=== PATIENT | male | born 1945 | race Caucasian/White ===

== ENCOUNTER 2019-10-11 13:43 | Inpatient (IN) ==
[2019-10-11] MEDS ORDERED: SODIUM CHLORIDE 0.9% 250 ML IV PRN ×2 (14:26→16:44)
[2019-10-11] MEDS ORDERED: SODIUM CHLORIDE 0.9% 500 ML IV SCH (14:30)
[2019-10-11] MEDS ORDERED: PANTOprazole 80 MG in DEXTROSE 5% 100 ML IV ONE (15:00)
[2019-10-11] MEDS: PANTOprazole 40 MG in DEXTROSE 5% 100 ML IV SCH ×2 (15:01→19:33)
[2019-10-11 15:09] LABS: Alanine Aminotransferase 14 U/L (12-78); Albumin Level 3.3 gm/dl (3.4-5.0); Aspartate Aminotransferase 11 U/L (15-37); BUN Creatinine Ratio 44.6 (10-20); Blood Urea Nitrogen 97 mg/dl (7-18); Calcium 9.2 mg/dl (8.5-10.1); Carbon Dioxide 24 mmol/L (21-32); Chloride 109 mmol/L (98-107); Creatinine Clr Calc Pharmacy 32.7 ml/min; Est GFR (African American) 33.1; Est GFR (Non-African American) 28.5; Glucose 231 mg/dl (70-99); Potassium 5.3 mmol/L (3.5-5.1); Sodium 141 mmol/L (136-145)
[2019-10-11] MEDS ORDERED: NovoLIN-R INSULIN PER UNIT CHARGE IV STA (15:11)
--- NOTE | 2019-10-11 15:11 | XRay Report ---
XR chest 1V portable HISTORY: 74 years-old Male vomiting eval for free air acute vomiting with concern for pneumoperitone um COMPARISON: None TECHNIQUE: Portable AP view of the chest FINDINGS: Cardiomediastinal and hilar silhouettes are within normal limits. Exam is limited secondary to positi oning. No pneumothorax, pleural effusion, focal airspace consolidation or overt pulmonary edema. Incr eased lucency of the right lung compared the left is likely secondary to rotation. Degenerative moreau es of the shoulders and spine. Imaged upper abdomen is unremarkable. No pneumoperitoneum identified o n this view of the chest. IMPRESSION: No acute process. ACT 112: Negative or not required by law. The above report was generated using voice recognition software. It may contain grammatical, syntax o r spelling errors. Electronically signed by: John Paul Ratliff M.D. 10/11/2019 3:10 PM
[2019-10-11 15:13] LABS: Albumin Globulin Ratio 0.9 (0.9-2); Alkaline Phosphatase 67 U/L (45-117); Bilirubin,Total 0.4 mg/dl (0.2-1); Globulin 3.5 gm/dl (2.5-4.0); Total Protein 6.8 gm/dl (6.4-8.2); Troponin I < 0.015 ng/ml (0-0.045)
[2019-10-11 15:16] LABS: Basophils # (auto) 0.03 K/uL (0-0.2); Basophils % (auto) 0.2 %; Eosinophils # (auto) 0.13 K/uL (0-0.5); Eosinophils % (auto) 0.8 %; Hematocrit (blood only) 29.6 % (42-52); Hemoglobin 9.8 g/dL (14.0-18.0); Immature Granulocytes # (auto) 0.12 K/uL (0.00-0.02); Immature Granulocytes % (auto) 0.7 %; Lymphocytes # (auto) 1.87 K/uL (1.2-3.4); Lymphocytes % (auto) 11.4 %; Mean Corpuscular Hemoglobin 30.2 pg (25-34); Mean Corpuscular Hgb Conc 33.1 g/dL (32-36); Mean Corpuscular Volume 91.1 fL (80-100); Mean Platelet Volume 12.1 fL (7.4-10.4); Monocytes # (auto) 1.04 K/uL (0.11-0.59); Monocytes % (auto) 6.4 %; Neutrophils # (auto) 13.15 K/uL (1.4-6.5); Neutrophils % (auto) 80.5 %; Platelet Count 210 K/uL (130-400); Platelet Estimate Normal (Normal); RDW Coefficient of Variation 13.9 % (11.5-14.5); RDW Standard Deviation 46.1 fL (36.4-46.3); Red Blood Count 3.25 M/uL (4.7-6.1); White Blood Count 16.34 K/uL (4.8-10.8)
--- NOTE | 2019-10-11 15:54 | Electrocardiogram Report ---
Test Reason : Blood Pressure : / mmHG Vent. Rate : 086 BPM Atrial Rate : 086 BPM P-R Int : 148 ms QRS Dur : 076 ms QT Int : 364 ms P-R-T Axes : 068 -07 086 degrees QTc Int : 435 ms Poor data quality, interpretation may be adversely affected Sinus rhythm with occasional Premature ventricular complexes Otherwise Normal ECG No previous ECGs available Confirmed by Juan Ramon Patel ([id number]) on 10/11/2019 3:53:57 PM Referred By: Confirmed By:Juan Ramon Patel
--- NOTE | 2019-10-11 16:28 | History & Physical Report ---
Date of Service October 11, 2019 Assessment & Plan (1) Hypotension: - In setting of acute GI bleed. - Hold home Metoprolol due to hypotension. - Holding home Lasix -- no documented TTE in our system but does take Lasix 20 mg PO daily at home, ?CHF. - Received NS x 2L in the ER; NS at 100 cc/hr x 2 bags following admission. - ICU consulted, may require pressor support overnight if no improvement in BP following 2nd liter of IV fluids and PRBCs transfusion. (2) GI bleed: - Presented with coffee ground emesis and melena -- FOBT was positive. - Continue Protonix drip. - NPO except medications/sips of water; IV fluids at 100 cc/hr. - GI consulted for possible intervention - discussed with Dr. Preston, recommended to transfuse PRBCs and stabilize BPs overnight. - Holding home Plavix/ASA - last dose on Friday10/08/19. (3) Anemia: - Hgb 9.8; no previous labs for comparison. Decreased to 7.8 on repeat labs. - Likely acute blood loss related to GI bleed. - Transfuse 2 units PRBCs for acute bleed/hypotension. - Monitor CBC status post transfusion then q8hr. (4) Peripheral arterial disease: - S/p balloon angioplasty at [facility] [place]. - Holding home Plavix and ASA due to acute bleed. - Follows with cardiology at [facility] -- will request records. (5) Acute renal failure: - Creatinine was 2.17 on admission - no previous labs for comparison but is likely elevated above baseline. - NS x 2L; Continue NS at 100 cc/hr x 2 bags. - Monitor renal function daily. - Hold nephrotoxic agents. - U/a pending to evaluate for cast cells, ?ATN. (6) CKD (chronic kidney disease): - No previous labs for staging, likely stage III-IV. (7) Diabetes mellitus, type II: - Glucose 231 in the ER. - Holding home Metformin. - A1C in the morning. - SSI coverage. (8) Atrial fibrillation: - Continue home Propafenone q8hr. - Holding Metoprolol XL 50 mg daily due to hypotension - monitor for rebound tachycardia. - Admit to telemetry for monitoring. - Not currently on therapeutic anticoagulation at home. - Will request cardiology records. (9) HTN (hypertension): - Holding home Metoprolol in setting of hypotension. (10) HLD (hyperlipidemia): - Continue Atorvastatin 10 mg daily. (11) Hyperkalemia: - K level 5.3 -- no evidence of T wave changes on EKG. - Received insulin in the ER -- repeat BMP daily. - Monitor BMP closely -- consider more aggressive treatment if indicated. (12) DVT prophylaxis: - SCDs; holding pharmacologic ppx in setting of acute bleed. Dispo: PCU admit for acute GI bleed. Low threshold for upgrade to ICU, fire patrol following. History of Present Illness Chief Complaint: GI bleed Primary Care Provider: Colby Ford DO Mr. 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 Pt. developed vomiting that had a coffee ground appearance yesterday afternoon after 5 pm. He had multiple episodes of vomiting throughout the course of the evening. Had multiple loose BMs overnight, appearance similar to melena -- his described stool as "black as coal". He has generalized fatigue, weakness. Denies chest pain, SOB, URI symptoms, LE edema, abd pain, dysuria or hematuria. ER course: Hgb decreased to 7.8 -- will receive 2 units pRBCs. Is hypotensive -- received 1L NS followed by infusion of 2nd liter NS with minimal improvement. Will consult fire patrol as patient was agreeable to pressor support if indicated. Acute renal failure noted on labs; baseline is unclear, no previous labs for comparison. Mild hypokalemia also noted on labs. Will admit to PCU tele; may require upgrade to ICU overnight if no improvement in hypotension. Allergies Allergy/AdvReac Type Severity Reaction Status Date / Time No Known Allergies Allergy Unverified 10/11/19 16:45 Home Medications Home Medications Medication Instructions Recorded Confirmed Type aspirin 325 mg PO QAM 10/11/19 10/11/19 History atorvastatin 10 mg PO QPM 10/11/19 10/11/19 History clopidogrel 75 mg PO QAM 10/11/19 10/11/19 History furosemide 20 mg PO QAM 10/11/19 10/11/19 History metformin 500 mg PO BID 03/02/20 03/02/20 History metoprolol succinate 50 mg PO QAM 10/11/19 10/11/19 History propafenone 150 mg PO TID 10/11/19 10/11/19 History Past Med/Surg History Medical History (Updated 10/11/19 @ 17:42 by Matteo Harding) Atrial fibrillation Current use of [facility] anticoagulation Diabetes mellitus, type II HLD (hyperlipidemia) HTN (hypertension) Peripheral arterial disease Family History Other No significant family history Social History Communication Ability: Effective Capacitor Tester Required: No Beliefs That Will Affect Care: None marital status: Current Living Situation: Alone current occupational status: retired Feels Safe at Home: Yes Smoking Status: Current every day smoker Tobacco Type: cigarettes ; Cigarettes Per Day: 10 ; Second Hand Exposure: No ; Hx Alcohol Use: Yes Alcohol type: beer Hx Substance Use: No Review of Systems Review of Systems: All systems reviewed & are unremarkable except as noted in HPI & below Constitutional: + fatigue, + weakness and + anorexia; no fever and no chills Respiratory: no cough, no dyspnea, no dyspnea on exertion and no wheezing Cardiovascular: no chest pain, no palpitations and no edema Gastrointestinal: + nausea, + vomiting, + coffee ground emesis, + diarrhea/loose stools and + melena; no abdominal pain and no constipation Genitourinary: no dysuria, no difficulty urinating and no hematuria Musculoskeletal: no back pain and no joint pain Integumentary: no non-healing lesions Neurologic: no headache(s) and no confusion Physical Exam Physical Exam: General: Resting comfortably HEENT: NC/AT; PERRLA with EOMI; [place] conjunctiva, MMM. No erythema of posterior pharynx Neck: Supple and nontender Cardiac: RRR Lungs: CTA bilaterally Abdomen: Bowel normoactive X 4; Nontender to palpation Rectal: Deferred : Deferred Back: NO spinous tenderness Extremities: Warm. No edema present Neuro: No focal weakness Skin: Psoriasis plaques noted on exam. Results & Data Vital Signs (Past 12 Hours) Vital Signs Temp Pulse Pulse Resp BP BP Pulse Ox 10/11/19 15:39 100/59 L 10/11/19 15:01 79 18 125/55 L 97 10/11/19 14:56 97 10/11/19 14:10 36.3 C L 90 20 92/52 L 100 Laboratory Results 10/11/19 10/11/19 10/11/19 Range/Units 14:55 14:36 14:36 WBC (4.8-10.8) K/uL RBC (4.7-6.1) M/uL Hgb (14.0-18.0) g/dL Hct (42-52) % MCV (80-100) fL MCH (25-34) pg MCHC (32-36) g/dL RDW Std Deviation (36.4-46.3) fL RDW Coeff of Ewelina (11.5-14.5) % Plt Count (130-400) K/uL MPV (7.4-10.4) fL Immature Gran % (Auto) % Neut % (Auto) % Lymph % (Auto) % [place] % (Auto) % Eos % (Auto) % Baso % (Auto) % Immature Gran # (Auto) (0.00-0.02) K/uL Neut # (Auto) (1.4-6.5) K/uL Lymph # (Auto) (1.2-3.4) K/uL [place] # (Auto) (0.11-0.59) K/uL Eos # (Auto) (0-0.5) K/uL Baso # (Auto) (0-0.2) K/uL Platelet Estimate (Normal) PT Cancelled INR Cancelled APTT Cancelled PTT Ratio Cancelled Sodium (136-145) mmol/L Potassium (3.5-5.1) mmol/L Chloride (98-107) mmol/L Carbon Dioxide (21-32) mmol/L Anion Gap (3-11) BUN (7-18) mg/dl Creatinine (0.6-1.4) mg/dl Est Cr Clr Drug Dosing ml/min Est GFR ( Amer) Est GFR (Non-Af Amer) BUN/Creatinine Ratio (10-20) Glucose (70-99) mg/dl Calcium (8.5-10.1) mg/dl Total Bilirubin (0.2-1) mg/dl AST (15-37) U/L ALT (12-78) U/L Alkaline Phosphatase (45-117) U/L Troponin I (0-0.045) ng/ml Total Protein (6.4-8.2) gm/dl Albumin (3.4-5.0) gm/dl Globulin (2.5-4.0) gm/dl Albumin/Globulin Ratio (0.9-2) Specimen Hemolysis POC Stool Occult Blood Positive A (Negative) Blood Type A Positive Antibody Screen NEGATIVE Crossmatch See Detail 10/11/19 10/11/19 Range/Units 14:36 14:36 WBC 16.34 H (4.8-10.8) K/uL RBC 3.25 L (4.7-6.1) M/uL Hgb 9.8 L (14.0-18.0) g/dL Hct 29.6 L (42-52) % MCV 91.1 (80-100) fL MCH 30.2 (25-34) pg MCHC 33.1 (32-36) g/dL RDW Std Deviation 46.1 (36.4-46.3) fL RDW Coeff of Ewelina 13.9 (11.5-14.5) % Plt Count 210 (130-400) K/uL MPV 12.1 H (7.4-10.4) fL Immature Gran % (Auto) 0.7 % Neut % (Auto) 80.5 % Lymph % (Auto) 11.4 % [place] % (Auto) 6.4 % Eos % (Auto) 0.8 % Baso % (Auto) 0.2 % Immature Gran # (Auto) 0.12 H (0.00-0.02) K/uL Neut # (Auto) 13.15 H (1.4-6.5) K/uL Lymph # (Auto) 1.87 (1.2-3.4) K/uL [facility] # (Auto) 1.04 H (0.11-0.59) K/uL Eos # (Auto) 0.13 (0-0.5) K/uL Baso # (Auto) 0.03 (0-0.2) K/uL Platelet Estimate Normal (Normal) PT INR APTT PTT Ratio Sodium 141 (136-145) mmol/L Potassium 5.3 H (3.5-5.1) mmol/L Chloride 109 H (98-107) mmol/L Carbon Dioxide 24 (21-32) mmol/L Anion Gap 7.0 (3-11) BUN 97 H (7-18) mg/dl Creatinine 2.17 H (0.6-1.4) mg/dl Est Cr Clr Drug Dosing 32.7 ml/min Est GFR ( Amer) 33.1 Est GFR (Non-Af Amer) 28.5 BUN/Creatinine Ratio 44.6 H (10-20) Glucose 231 H (70-99) mg/dl Calcium 9.2 (8.5-10.1) mg/dl Total Bilirubin 0.4 (0.2-1) mg/dl AST 11 L (15-37) U/L ALT 14 (12-78) U/L Alkaline Phosphatase 67 (45-117) U/L Troponin I < 0.015 (0-0.045) ng/ml Total Protein 6.8 (6.4-8.2) gm/dl Albumin 3.3 L (3.4-5.0) gm/dl Globulin 3.5 (2.5-4.0) gm/dl Albumin/Globulin Ratio 0.9 (0.9-2) Specimen Hemolysis POC Stool Occult Blood (Negative) Blood Type Antibody Screen Crossmatch Code Status & VTE Plan Code Status DNR/DNI -- okay with pressor support in ICU. VTE Prophylaxis Plan VTE Prophylaxis will be ordered: Yes Supervising Physician Co-Signing Physician Notes I have seen and examined the pt with Lisa Lopez PA-C and I agree with her assessment and plan. PG Care Time/CCT Total # of Minutes Spent Total Time Spent with Patient: Total time spent is greater than 50% in coordination of care (as documented) at patient's floor/unit and/or counseling patient: Coding Level of Care Code 13128 Initial Inpt Care Lvl 3 Diagnoses Hypotension I95.9 GI bleed K92.2 Anemia D64.9 Peripheral arterial disease I73.9 Acute renal failure N17.9 CKD (chronic kidney disease) N18.9 Diabetes mellitus, type II E11.9 Atrial fibrillation I48.91 HTN (hypertension) I10 HLD (hyperlipidemia) E78.5 Hyperkalemia E87.5 DVT prophylaxis Z29.9
[2019-10-11 16:41] LABS: Hematocrit (blood only) 23.8 % (42-52); Hemoglobin 7.8 g/dL (14.0-18.0)
[2019-10-11 16:52] LABS: INR 1.1 (0.9-1.1); Partial Thromboplastin Ratio 0.9; Partial Thromboplastin Time 23.6 Seconds (21.0-31.0); Prothrombin Time 10.8 Seconds (9.0-12.0)
[2019-10-11] MEDS ORDERED: SODIUM CHLORIDE 0.9% 1000ML 1,000 ML IV ONE (17:08)
--- NOTE | 2019-10-11 18:01 | Critical Care Consultation ---
Date of Consultation October 11, 2019 Assessment & Plan (1) Acute gastrointestinal bleeding: -- Hypotension Acute blood loss anaemia Transient responding to fluids likely secondary to GI bleeding continue with Protonix Type and screen Transfuse as needed to keep hemoglobin greater than 7 Monitor H&H Consult GI Bedside Ultrasound: Lung: No B-lines appreciated bilaterally anteriorly and posteriorly. No pleural effusion bilaterally. Heart: Hyperdynamic left ventricle, good ejection fraction, right ventricle collapsing, IVC totally collapsed. No pericardial effusion. Abdomen: No peritoneal fluid. Urinary bladder distended. Recommend giving at least 1.5 L of IV fluid on top of the liter already received in the ER. -- VANDANA Likely prerenal Follow-up urine lites Monitor BUN/creatinine Avoid nephrotoxic medications Strict ins and outs --Leukocytosis Likely reactive to GI bleed Patient has no signs or symptoms of infection Monitor --Active smoker Greater than [id number] smoking history Advised to quit Recommend outpatient follow-up with her area manager to have PFTs done. Patient may benefit from lama inhaler. --DVT prophylaxis IPC --DNR/DNI Patient okay to have vasopressor support if need be Plan: Patient's blood pressure at the time of examination was greater than 120 systolic with map being in the 70s multiple times. Pocus showed hyperdynamic left heart with collapsible IVC patient is dehydrated and needs more fluids. Currently patient seems to be hemodynamically stable to be monitored on a telemetry floor. If there is any hemodynamic compromise will take the patient to the MICU. I have personally spent 65 minutes of critical care time in the direct manag ement of this patient. This is a life/limb threatening event. This includes time spent evaluating p atient, direct bedside care, chart review, placing orders, interpretation of diagnostic studies, discussion with consultants, patient, and family members, as well as other required patient management activities. This time is exclusive of all separately billable procedures, and teaching time and separate from and in addition to any other critical care service time. Please note the above document was generated using voice recognition software. It may contain grammatical, syntax or spelling errors. (2) Hypotension: History of Present Illness History of Present Illness 74-year-old male with past medical history of peripheral vascular disease, hypertension, dyslipidemia, diabetes mellitus type 2 comes to the hospital with complaints of generalized weakness going on for the last 2 days associated with coffee-ground emesis and melanotic stools. Patient does complain of dizziness especially on exertion. No chest pain, no shortness of breath, no blurry vision, no fever or chills. Denies any dysuria. Denies taking any [id number] pain medications. He is on Plavix and aspirin which he is compliant with again last dose being on Friday. Patient never had such episode in the past. Patient's fianc is at bedside and she says the patient has not taken any of his medications since Friday. Social history: Active smoker with greater than [id number] smoking history, denies any illicit drug use, 1 beer on a daily basis. Allergies Allergy/AdvReac Type Severity Reaction Status Date / Time No Known Allergies Allergy Unverified 10/11/19 16:45 Home Medications Home Medications Medication Instructions Recorded Confirmed Type aspirin 325 mg PO QAM 10/11/19 10/11/19 History atorvastatin 10 mg PO QPM 10/11/19 10/11/19 History clopidogrel 75 mg PO QAM 10/11/19 10/11/19 History furosemide 20 mg PO QAM 10/11/19 10/11/19 History metformin 500 mg PO BID 10/11/19 10/11/19 History metoprolol succinate 50 mg PO QAM 10/11/19 10/11/19 History propafenone 150 mg PO TID 10/11/19 10/11/19 History Patient History Medical History (Updated 10/11/19 @ 17:42 by Matteo Harding) Atrial fibrillation Current use of [facility] anticoagulation Diabetes mellitus, type II HLD (hyperlipidemia) HTN (hypertension) Peripheral arterial disease Family History Other No significant family history Social History marital status: Current Living Situation: Family current occupational status: retired Feels Safe at Home: Yes Review of Systems Review of Systems: All systems reviewed & are unremarkable except as noted in HPI & below Physical Exam Physical Exam: Constitutional: No acute distress HEENT: EOMI, PERRLA, pale conjunctiva Respiratory system: Good air entry bilaterally, no wheeze, no rhonchi, no crackles CVS: S1-S2 positive, no murmurs or gallops Abdomen: Soft, nontender, nondistended, positive bowel sounds x4 Extremities: +2 pulses bilaterally radialis/ dorsalis pedis, no cyanosis, no e tonya, Scaling psoriatic rash appreciated on the extensor surfaces of bilateral upper extremity as well as bilateral escalante and abdomen. Amputation of the first 3 toes on the right foot. Neuro: Awake alert oriented x3 Psych: Normal mood and affect G/U: No Das Skin: no rashes, warm and dry Lymphatic: no cervical or axillary lymphadenopathy Results & Data ([facility]) Vital Signs (Past 12 Hours) Vital Signs Temp Pulse Pulse Resp BP BP Pulse Ox 10/11/19 17:45 36.8 C 87 18 110/48 L 97 10/11/19 17:30 36.7 C 82 16 126/55 L 97 10/11/19 16:22 83 97/34 L 96 10/11/19 15:39 100/59 L 10/11/19 15:01 79 18 125/55 L 97 10/11/19 14:56 97 10/11/19 14:10 36.3 C L 90 20 92/52 L 100 EKG: Normal sinus rhythm, normal axis, no ST-T wave changes appreciated. PVCs appreciated. Chest x-ray: Portable, centrally paced, good respiratory effort, bilateral costophrenic and cardiophrenic angles are clean, no clear infiltrate appreciated. 10/11/19 16:30 10/11/19 14:36 [facility] Procedure Codes (Charges) Pulmonary/Thoracic Procedure 1: Pulmonary and Thoracic: 33693 US, Chest, real time with imaging documentation Coding Level of Care Code Critical Care 1st 30-74 mins Diagnoses Acute gastrointestinal bleeding K92.2 Hypotension I95.9 Hypotension type: unspecified hypotension type CPT Codes Pulmonary/Thoracic - Pulmonary and Thoracic: 56169 US, Chest, real time with imaging documentation ([id number]) Time Spent (min) 65 (1) Hypotension Hypotension type: unspecified hypotension type Qualified Code(s): I95.9 - Hypotension, unspecified
[2019-10-11] MEDS ORDERED: SODIUM CHLORIDE 0.9% 1000ML 500 ML IV ONE (18:04)
[2019-10-11 18:17] LABS: Appearance Urine Clear (Clear); Bilirubin Urine Negative (Negative); Blood Urine Negative (Negative); Color Urine Yellow; Glucose Urine UA Negative (Negative); Ketones Urine Negative (Negative); Leukocyte Esterase Urine Negative (Negative); Nitrite Urine Negative (Negative); Protein Urine Negative (Negative); Specific Gravity Urine 1.018 (1.000-1.030); Urobilinogen Urine Negative (Negative)
[2019-10-11] MEDS ORDERED: CARBOHYDRATES FOR HYPOGLYCEMIA PO PRN (18:54)
[2019-10-11] MEDS ORDERED: GLUCOSE 40% GEL 15 GM TUBE PO PRN (18:54)
[2019-10-11] MEDS ORDERED: ONDANSETRON INJ 2 MG/ML 2 ML VIAL IV PRN (18:54)
[2019-10-11] MEDS ORDERED: ACETAMINOPHEN 325 MG TAB PO PRN (18:54)
[2019-10-11] MEDS ORDERED: GLUCAGON FOR INJ 1 MG VIAL SQ PRN (18:54)
[2019-10-11] MEDS ORDERED: GLUCOSE 10 TABS/TUBE PO PRN (18:54)
[2019-10-11] MEDS ORDERED: DEXTROSE 50% 50 ML SYRINGE IV PRN (18:54)
[2019-10-11] MEDS: INSULIN ASPART 100 UNITS/ML 3 ML PEN SC SCH ×2 (19:43→21:21)
[2019-10-11] MEDS ORDERED: PIPERACILL/TAZOBAC CONSULT ACTIVE PRN (20:38)
[2019-10-11] MEDS ORDERED: PIPERACILLIN/TAZOBACTAM 3.375 GM in DEXTROSE 5% 100 ML IV ONE (21:00)
--- NOTE | 2019-10-11 21:56 | Emergency Department Note ---
Entered by Matteo Harding acting as a scribe for Delonte Meraz MD History of Present Illness General Chief complaint: GI Assessment Stated complaint: DARK COLORED VOMIT, DARK STOOLS,WEAK Time Seen by Provider: 10/11/19 14:18 Source: patient History of Present Illness Onset (ago): day(s) (yesterday) Location: abdomen Pain Consistency: + other (multiple episodes) Maximum Pain Intensity: 0 Quality: + other (black stool and coffee ground vomit) Associated symptoms: + other (Positive for nausea and weakness. Negative for CP, SOB, and abodminal pain.) The patient is a 74 year old male who presents to the emergency department with complaints of multiple episodes of black stool and coffee ground vomit beginning yesterday. The patient states that he started having black stool and coffee ground vomit yesterday. He notes that he has had 4-5 episodes of the black stools, as well as 4-5 episodes of the coffee ground vomit. He also complains of nausea and weakness. He denies any CP, SOB, and abdominal pain. He reports that he is on Plavix and aspirin. He drinks alcohol infrequently. He has no history of varices. He denies any history of GI bleed or peptic ulcer disease. He denies NSAID use. Home Medications Home Medications Medication Instructions Recorded Confirmed Type aspirin 325 mg PO QAM 10/11/19 10/11/19 History atorvastatin 10 mg PO QPM 10/11/19 10/11/19 History clopidogrel 75 mg PO QAM 10/11/19 10/11/19 History furosemide 20 mg PO QAM 10/11/19 10/11/19 History metformin 500 mg PO BID 10/11/19 10/11/19 History metoprolol succinate 50 mg PO QAM 10/11/19 10/11/19 History propafenone 150 mg PO TID 10/11/19 10/11/19 History Allergies Allergy/AdvReac Type Severity Reaction Status Date / Time No Known Allergies Allergy Unverified 10/11/19 16:45 Past Med/Surg History Medical History Atrial fibrillation Current use of [facility] anticoagulation Diabetes mellitus, type II HLD (hyperlipidemia) HTN (hypertension) Peripheral arterial disease Surgical History No pertinent past surgical history Family History Other No significant family history Social History Communication Ability: Effective Cage Unloader Required: No Beliefs That Will Affect Care: None marital status: Current Living Situation: Alone current occupational status: retired Feels Safe at Home: Yes Smoking Status: Current every day smoker Tobacco Type: cigarettes ; Cigarettes Per Day: 10 ; Second Hand Exposure: No ; Hx Alcohol Use: Yes Alcohol type: beer Hx Substance Use: No Review of Systems See HPI for pertinent positives & negatives. and A total of 10 systems reviewed and were otherwise negative Physical Exam Vital Signs Vital Signs - 24 hr 10/11/19 14:10 10/11/19 14:56 10/11/19 15:01 Temperature 36.3 C L Temperature Source Oral Pulse Rate 90 Pulse Rate [Apical] 79 Respiratory Rate 20 18 Blood Pressure 92/52 L Blood Pressure [Left Arm] 125/55 L Blood Pressure Mean 65 Blood Pressure Mean [Left Arm] 78 Pulse Oximetry 100 97 97 Oxygen Delivery Method Room Air Room Air Room Air Sepsis Recent Fever Within 48 Hours No Sepsis New/Unexplained Change in Mental Status No Sepsis Action Taken by Nursing No Action Required 10/11/19 15:39 Temperature Temperature Source Pulse Rate Pulse Rate [Apical] Respiratory Rate Blood Pressure Blood Pressure [Left Arm] 100/59 L Blood Pressure Mean Blood Pressure Mean [Left Arm] 72 Pulse Oximetry Oxygen Delivery Method Sepsis Recent Fever Within 48 Hours Sepsis New/Unexplained Change in Mental Status Sepsis Action Taken by Nursing Constitutional: Vital signs reviewed. Hypotensive. Eyes: Pupils are equal round reactive to light. Conjunctiva are noninjected. ENT: Pharynx is clear without erythema or exudate. Mucous membranes are moist. Neck supple without meningeal signs. Respiratory: Clear to auscultation bilaterally. Breath sounds are equal bilaterally. Cardiovascular: Regular rate and rhythm. No rubs or gallops. GI: Soft, nondistended and nontender. Bowel sounds are present. Rectal: Guaiac positive melanotic stool. Musculoskeletal: No peripheral edema. No lower extremity tenderness. Integumentary: No cyanosis. Neurological: The patient is awake and alert. No focal deficits. Psychiatric: Normal affect. Course Course 1419: The patient was evaluated in room C3. A complete history and physical exam was performed. 1445: I performed a rectal exam on the patient. The patient is guaiac positive with black stools. His blood pressure is 108/66. 1516: I reevaluated and updated the patient. We discussed his test results. He states that he has no prior history of kidney disease. His blood pressure is 125/55. 1523: I rechecked the patient. I spoke to him about his blood tests. We are going to hold on the transfusion right now as he is hemodynamically stable. 1626: I discussed the patient's case with Lisa Rogers PA-C, and Dr. Cerna - Hospitalist, [place]. The patient will be evaluated for further treatment. The patient's pressure dropped to the 70s and then came up to the 90s after additional fluids. Lab is there now drawing a repeat H&H. Dr. Dallas was paged. The patient's current pressure is 97/34. 1634: I rechecked the patient. His systolic blood pressure is in the 130s. Written blood consent was signed. 1643: We attempted to call [facility], but they were unavailable. We are now paging Dr. Vaughan for [facility]. 1650: I reevaluated and updated the patient. He is hemodynamically stable. I discussed his second H&H with him and his fiance. They are agreeable to a blood transfusion. We are still waiting for to call back. 1709: I rechecked the patient. His blood pressure is 103/73. is not calling back so we are now paging Dr. Preston for [facility]. I informed Dr. Cerna that we are still trying to reach GI. 1755: I discussed the patient's case with Dionte Magallanes. He states that he also spoke to the hospitalist. 1840: I rechecked the patient. He is getting his transfusion and is going upstairs. His blood pressure is 120 systolic. Consultations Consultation #1: I discussed the patient's case with Lisa Rogers PA-C, and Dr. Cerna - HospitalistLYNETTE. The patient will be evaluated for further treatment. Time: 16:26 Consultation #2: I discussed the patient's case with Dionte Magallanes. He states that he also spoke to the hospitalist. Time: 17:55 Administered Medications Pantoprazole Sodium 40 mg/ (Dextrose) 100 mls @ 20 mls/hr IV Q5H EDWIN Stop: 11/10/19 15:14 Last Admin: 10/11/19 19:33 Dose: 8 mg/hr, 20 mls/hr Documented by: [id number] Infusion: 10/11/19 19:33 Dose: 8 mg/hr, 20 mls/hr Documented by: [id number] Admin: 10/11/19 15:01 Dose: 8 mg/hr, 20 mls/hr Documented by: [id number] Insulin Aspart (Novolog Flexpen) 0 units SC ACHS EDWIN Stop: 11/10/19 18:53 Last Admin: 10/11/19 21:21 Dose: Not Given Documented by: [id number] Cosigned by: [id number] Admin: 10/11/19 19:43 Dose: Not Given Documented by: [id number] Cosigned by: [id number] Discontinued Medications Sodium Chloride (Nss) 500 mls @ 999 mls/hr IV .Q31M EDWIN Stop: 10/11/19 15:00 Last Infusion: 10/11/19 15:30 Dose: 0 mls/hr Documented by: [id number] Admin: 10/11/19 14:46 Dose: 999 mls/hr Documented by: [id number] Pantoprazole Sodium 80 mg/ (Dextrose) 120 mls @ 480 mls/hr IV NOW ONE Stop: 10/11/19 15:14 Last Infusion: 10/11/19 15:04 Dose: 0 mls/hr Documented by: [id number] Admin: 10/11/19 14:46 Dose: 480 mls/hr Documented by: [id number] Sodium Chloride (Nss 1000ml) 1,000 mls @ 999 mls/hr IV .Q1H1M ONE Stop: 10/11/19 18:08 Last Infusion: 10/11/19 19:46 Dose: 0 mls/hr Documented by: [id number] Admin: 10/11/19 17:09 Dose: 999 mls/hr Documented by: [id number] Sodium Chloride (Nss 1000ml) 500 mls @ 999 mls/hr IV .Q31M ONE Stop: 10/11/19 18:34 Last Admin: 10/11/19 19:35 Dose: 999 mls/hr Documented by: [id number] Insulin Human Regular (Novolin R U-100 Per Unit) 5 units IV NOW STA Stop: 10/11/19 15:12 Last Admin: 10/11/19 15:37 Dose: 5 units Documented by: [id number] Cosigned by: [id number] Critical Care Time Critical Care Time: Yes Total Critical Care Time: 45 I have personally spent 45 minutes of critical care time in the direct management of this patient with acute GI bleed and hypotension. This includes bedside care, interpretation of diagnostic studies, and testing, discussion with consultants, patient, and family members, and other required patient management activities. This 45 minutes is in excess of all separately billable procedures. Medical Decision Making Differential Diagnosis Differential diagnoses include: PUD, gastric ulcer, GI bleed, anemia, and esophageal varices. Medical Records Attestation: I reviewed the patient's medical records. I did perform a limited focused review of portions of the patient's old chart on the electronic medical record. The patient has had no recent pertinent visits to this hospital. Home Medications Current Medication List: was personally reviewed by me Laboratory Data Attestation: I reviewed the patient's lab results. Result diagrams: 10/11/19 16:30 10/11/19 14:36 Lab Results 10/11/19 10/11/19 10/11/19 Range/Units 14:36 14:36 14:36 WBC 16.34 H (4.8-10.8) K/uL RBC 3.25 L (4.7-6.1) M/uL Hgb 9.8 L (14.0-18.0) g/dL Hct 29.6 L (42-52) % MCV 91.1 (80-100) fL MCH 30.2 (25-34) pg MCHC 33.1 (32-36) g/dL RDW Std Deviation 46.1 (36.4-46.3) fL RDW Coeff of Ewelina 13.9 (11.5-14.5) % Plt Count 210 (130-400) K/uL MPV 12.1 H (7.4-10.4) fL Immature Gran % (Auto) 0.7 % Neut % (Auto) 80.5 % Lymph % (Auto) 11.4 % [place] % (Auto) 6.4 % Eos % (Auto) 0.8 % Baso % (Auto) 0.2 % Immature Gran # (Auto) 0.12 H (0.00-0.02) K/uL Neut # (Auto) 13.15 H (1.4-6.5) K/uL Lymph # (Auto) 1.87 (1.2-3.4) K/uL [place] # (Auto) 1.04 H (0.11-0.59) K/uL Eos # (Auto) 0.13 (0-0.5) K/uL Baso # (Auto) 0.03 (0-0.2) K/uL Platelet Estimate Normal (Normal) PT INR APTT PTT Ratio Sodium 141 (136-145) mmol/L Potassium 5.3 H (3.5-5.1) mmol/L Chloride 109 H (98-107) mmol/L Carbon Dioxide 24 (21-32) mmol/L Anion Gap 7.0 (3-11) BUN 97 H (7-18) mg/dl Creatinine 2.17 H (0.6-1.4) mg/dl Est Cr Clr Drug Dosing 32.7 ml/min Est GFR ( Amer) 33.1 Est GFR (Non-Af Amer) 28.5 BUN/Creatinine Ratio 44.6 H (10-20) Glucose 231 H (70-99) mg/dl Calcium 9.2 (8.5-10.1) mg/dl Total Bilirubin 0.4 (0.2-1) mg/dl AST 11 L (15-37) U/L ALT 14 (12-78) U/L Alkaline Phosphatase 67 (45-117) U/L Troponin I < 0.015 (0-0.045) ng/ml Total Protein 6.8 (6.4-8.2) gm/dl Albumin 3.3 L (3.4-5.0) gm/dl Globulin 3.5 (2.5-4.0) gm/dl Albumin/Globulin Ratio 0.9 (0.9-2) Specimen Hemolysis POC Stool Occult Blood (Negative) Blood Type A Positive Antibody Screen NEGATIVE Crossmatch See Detail 10/11/19 10/11/19 Range/Units 14:36 14:55 WBC (4.8-10.8) K/uL RBC (4.7-6.1) M/uL Hgb (14.0-18.0) g/dL Hct (42-52) % MCV (80-100) fL MCH (25-34) pg MCHC (32-36) g/dL RDW Std Deviation (36.4-46.3) fL RDW Coeff of Ewelina (11.5-14.5) % Plt Count (130-400) K/uL MPV (7.4-10.4) fL Immature Gran % (Auto) % Neut % (Auto) % Lymph % (Auto) % [place] % (Auto) % Eos % (Auto) % Baso % (Auto) % Immature Gran # (Auto) (0.00-0.02) K/uL Neut # (Auto) (1.4-6.5) K/uL Lymph # (Auto) (1.2-3.4) K/uL [place] # (Auto) (0.11-0.59) K/uL Eos # (Auto) (0-0.5) K/uL Baso # (Auto) (0-0.2) K/uL Platelet Estimate (Normal) PT Cancelled INR Cancelled APTT Cancelled PTT Ratio Cancelled Sodium (136-145) mmol/L Potassium (3.5-5.1) mmol/L Chloride (98-107) mmol/L Carbon Dioxide (21-32) mmol/L Anion Gap (3-11) BUN (7-18) mg/dl Creatinine (0.6-1.4) mg/dl Est Cr Clr Drug Dosing ml/min Est GFR ( Amer) Est GFR (Non-Af Amer) BUN/Creatinine Ratio (10-20) Glucose (70-99) mg/dl Calcium (8.5-10.1) mg/dl Total Bilirubin (0.2-1) mg/dl AST (15-37) U/L ALT (12-78) U/L Alkaline Phosphatase (45-117) U/L Troponin I (0-0.045) ng/ml Total Protein (6.4-8.2) gm/dl Albumin (3.4-5.0) gm/dl Globulin (2.5-4.0) gm/dl Albumin/Globulin Ratio (0.9-2) Specimen Hemolysis POC Stool Occult Blood Positive A (Negative) Blood Type Antibody Screen Crossmatch Imaging Data Radiologist's Impression: Radiology results as stated below per my review and the radiologist's interpretation: XR chest 1V portable HISTORY: 74 years-old Male vomiting eval for free air acute vomiting with concern for pneumoperitoneum COMPARISON: None TECHNIQUE: Portable AP view of the chest FINDINGS: Cardiomediastinal and hilar silhouettes are within normal limits. Exam is limited secondary to positioning. No pneumothorax, pleural effusion, focal airspace consolidation or overt pulmonary edema. Increased lucency of the right lung compared the left is likely secondary to rotation. Degenerative changes of the shoulders and spine. Imaged upper abdomen is unremarkable. No pneumoperitoneum identified on this view of the chest. IMPRESSION: No acute process. ACT 112: Negative or not required by law. The above report was generated using voice recognition software. It may contain grammatical, syntax or spelling errors. Electronically signed by: John Paul Ratliff M.D. 10/11/2019 3:10 PM ECG Data Attestation: I personally reviewed and interpreted this ECG as follows: Indication: + other (hypotension) Rate (beats per minute): 86 Rhythm: + sinus rhythm ECG Intervals/blocks: + Normal QRS ECG ST segments: no ST elevation ECG Findings: + PVCs Blood Pressure Blood Pressure Findings: Low blood pressure Blood Pressure Disposition: further management by hospitalist BECKA Ortiz I did evaluate the patient as noted above. The patient is presenting with what appears to be a GI bleed. He has having coffee-ground emesis with melanotic stools. Rectal examination shows strongly guaiac positive melena. He was hypotensive in triage. IV access was established. I did treat the patient with normal saline IV. His blood pressure did improve significantly. The patient was placed on a continuous manager cardiac cath. I did order and personally review the patient's 12-lead EKG as described above. Twelve-lead EKG shows sinus rhythm. He has no acute ischemic changes. I did order and personally reviewed the images of the patient's chest x-ray as described above. There is no evidence of free air. I did obtained informed blood consent. I did order 2 units to be held. I did order and review the patient's blood work as noted in the electronic medical record. Initial hemoglobin was 9.8. He does have hyperkalemia with acute kidney injury. His creatinine is over 2. I did treat him with IV insulin for his hyperkalemia as well as his hyperglycemia. He is hyperglycemic. I did reassess the patient multiple times. He did develop hypotension again. He was given additional fluids with normal saline. I did repeat his H&H and his hemoglobin dropped to 7.8. While some of this is dilutional I was concerned of an acute bleed. I did recommend that we transfuse him. I did order 2 units to be transfused in the ED. I did discuss the case with the hospitalist and bilingual patient support caseworker. I did speak to GI regarding this patient. His transfusion was begun in the ED. He is also started on Protonix with a bolus and drip. He was admitted to the hospital. His blood pressure did improve. An order was placed for continuous cardiac monitoring in this patient with hypotension and GI bleed. The monitor shows a rate of 80 with normal sinus rhythm. Impression & Plan Acute gastrointestinal bleeding, Hypotension, Hyperkalemia, Symptomatic anemia, Acute kidney injury, Hyperglycemia Discharge Plan Visit Data *Final* Discharge Date/Time: 10/11/19 18:06 Chief Complaint: GI Assessment Stated Complaint: DARK COLORED VOMIT, DARK STOOLS,WEAK ED Provider: Delonte Meraz Discharge Problem: Acute gastrointestinal bleeding, Hypotension, Hyperkalemia, Symptomatic anemia, Acute kidney injury, Hyperglycemia Patient Disposition: Admitted As Inpatient Discharge Instructions Interventions: ED Discharge Assessment Last Done: 10/11/19 18:06 Discharge Problem: Hypotension Qualifiers: Hypotension type: unspecified hypotension type Qualified Code(s): I95.9 - Hypotension, unspecified The scribe's documentation has been prepared under my direction and personally reviewed by me in its entirety. I confirm that the note above accurately reflects all work, treatment, procedures, and medical decision making performed by me.
[2019-10-11] MEDS: PROPAFENONE HCL 150 MG TABLET PO SCH (22:43)
[2019-10-11] MEDS: SODIUM CHLORIDE 0.9% 1000ML 1,000 ML IV SCH (23:40)
[2019-10-12] MEDS: PANTOprazole 40 MG in DEXTROSE 5% 100 ML IV SCH ×3 (00:31→11:14)
[2019-10-12 01:38] LABS: Hematocrit (blood only) 28.5 % (42-52); Hemoglobin 9.5 g/dL (14.0-18.0)
[2019-10-12 05:58] LABS: Appearance Urine Clear (Clear); Bilirubin Urine Negative (Negative); Blood Urine Negative (Negative); Color Urine Yellow; Glucose Urine UA Negative (Negative); Ketones Urine Negative (Negative); Leukocyte Esterase Urine Negative (Negative); Nitrite Urine Negative (Negative); Protein Urine Negative (Negative); Specific Gravity Urine 1.019 (1.000-1.030); Urobilinogen Urine Negative (Negative)
[2019-10-12] MEDS: PROPAFENONE HCL 150 MG TABLET PO SCH ×3 (06:04→20:26)
[2019-10-12] MEDS: INSULIN ASPART 100 UNITS/ML 3 ML PEN SC SCH ×4 (08:16→20:26)
[2019-10-12] MEDS: ATORVASTATIN 10 MG TAB PO SCH (08:17)
[2019-10-12 08:34] LABS: Hematocrit (blood only) 26.5 % (42-52); Hemoglobin 8.9 g/dL (14.0-18.0); Mean Corpuscular Hemoglobin 29.9 pg (25-34); Mean Corpuscular Hgb Conc 33.6 g/dL (32-36); Mean Corpuscular Volume 88.9 fL (80-100); Mean Platelet Volume 11.2 fL (7.4-10.4); Platelet Count 161 K/uL (130-400); RDW Coefficient of Variation 14.7 % (11.5-14.5); RDW Standard Deviation 47.9 fL (36.4-46.3); Red Blood Count 2.98 M/uL (4.7-6.1); White Blood Count 9.03 K/uL (4.8-10.8)
[2019-10-12 09:12] LABS: BUN Creatinine Ratio 40.1 (10-20); Calcium 8.5 mg/dl (8.5-10.1); Creatinine Clr Calc Pharmacy 42.5 ml/min; Est GFR (African American) 43.8; Est GFR (Non-African American) 37.8; Magnesium 2.2 mg/dl (1.8-2.4); Potassium 3.9 mmol/L (3.5-5.1)
[2019-10-12 09:44] LABS: Estimated Average Glucose 140 mg/dl; Hemoglobin A1C 6.5 % (4.5-5.6)
[2019-10-12] MEDS: SODIUM CHLORIDE 0.9% 1000ML 1,000 ML IV SCH (09:51)
--- NOTE | 2019-10-12 10:32 | Gastrointestinal Consultation ---
Date of Consultation October 12, 2019 Assessment & Plan (1) Acute gastrointestinal bleedin. Abd X-ray. 2. Continue Protonix drip. Appreciate primary hospitalists managment of fluids/blood resusitation. 3. EGD today. Further recommendations to follow. Present on Admission?: Yes Supervising Physician Co-Signing Physician Notes I have seen and examined the patient with BONG Jorge whose note reflects our findings and plan. EGD today History of Present Illness Reason for Consultation: GI Bleed Requesting Physician: Lisa Lopez [facility] hospitalist Attending Physician: [place] Martel, History of Present Illness Ms. Cuco Silva is a 74 yr old male pt of Dr. Colby Ford in [place] with a hx of DM-2 PVD and A-fib on Plavix/ASA, HTN, Hyperlipidemia, Psoriasis who presented to the ED yesterday for melena. He reports 2 episodes of black emesis and 2 liquid black BMs on Friday (2 days ago), and 2 more loose black BMs yesterday. He has not had any gross GI bleeding since arrival. He denies any abdominal pain reflux or heartburn. He denies increased alcohol intake. He denies any prior hx of GI bleeding and has never undergone EGD or colonoscopy. He was hypotensive on arrival. Hb on arrival 9.8 (no prior CBCs on record). He received 2 units of RBCs and Hb this morning is 8.9. BUN was 97 on arrival and today is 69. Cr has also been elevated 2.1->1.7. He is awake, alert, oriented and hemodynamically stable. He is on a protonix drip. Allergies Allergy/AdvReac Type Severity Reaction Status Date / Time No Known Allergies Allergy Unverified 10/11/19 16:45 Home Medications Home Medications Medication Instructions Recorded Confirmed Type aspirin 325 mg PO QAM 10/11/19 10/11/19 History atorvastatin 10 mg PO QPM 10/11/19 10/11/19 History clopidogrel 75 mg PO QAM 10/11/19 10/11/19 History furosemide 20 mg PO QAM 10/11/19 10/11/19 History metformin 500 mg PO BID 10/11/19 10/11/19 History metoprolol succinate 50 mg PO QAM 10/11/19 10/11/19 History propafenone 150 mg PO TID 10/11/19 10/11/19 History Patient History Medical History Atrial fibrillation Current use of assisted anticoagulation Diabetes mellitus, type II HLD (hyperlipidemia) HTN (hypertension) Peripheral arterial disease Surgical History No pertinent past surgical history Family History Other No significant family history Social History Communication Ability: Effective Linoleum Floor Layer Required: No Beliefs That Will Affect Care: None marital status: Current Living Situation: Alone current occupational status: retired Feels Safe at Home: Yes Smoking Status: Current every day smoker Tobacco Type: cigarettes ; Cigarettes Per Day: 10 ; Second Hand Exposure: No ; Hx Alcohol Use: Yes Alcohol type: beer Hx Substance Use: No Review of Systems Review of Systems: ROS: Gen: Mild weakness; no fevers or weight loss Eyes: No eye redness, or pain, no recent vision changes Resp: No SOB, no cough Cardio: Has hx A-fib but denies any recent palpitations/irregular beats, no chest pain GI: See HPI : Denies pain on urination Skin: No jaundice, itching or new rashes Physical Exam Constitutional: WD/WN, vitals as above Eyes: PERRL, conjunctivae normal, anicteric sclerae ENMT: external ear and nose normal, oropharynx normal Neck: trachea midline, no thyromegaly Respiratory: normal respiratory effort, lungs clear to auscultation Cardiovascular: normal rate, irregular rhythm, 2-3/6 systolic murmur Gastrointestinal (Abdomen): normal bowel sounds, soft, nontender, no hepatosplenomegaly Musculoskeletal: no cyanosis or clubbing, extremities motor strength 5/5 Skin: rash consistent with psoriasis over trunk, arms, legs Neurologic: PERRL, EOMI, accommodation nl, no face palsy, no dysarthria Psychiatric: A+Ox3, euthymic affect Lymphatic: no cervical or axillary lymphadenopathy Results & Data ([facility] [place]) Vital Signs (Past 12 Hours) Vital Signs Temp Pulse Pulse Resp BP BP Pulse Ox 10/12/19 07:00 36.6 C 82 16 140/57 L 99 10/12/19 03:14 36.6 C 78 17 135/61 99 10/11/19 23:36 36.8 C 82 16 125/50 L 100 10/11/19 22:35 36.5 C 83 18 105/62 100 Laboratory Results Hb 8.9, BUN 69, INR 1.1, Na 144, K 3.9, Cr 1.72. Diagnostic Findings CXR w/o acute processes
--- NOTE | 2019-10-12 12:32 | Hospitalist Progress Note ---
Date of Service October 12, 2019 Assessment & Plan (1) Hypotension: - In setting of acute GI bleed; hypotension now improved. - Hold home Metoprolol & Lasix -- no documented TTE in our system but on Lasix 20 mg PO daily at home, ?CHF. - On NS at 100 cc/hr x 2 bags. - ICU consulted, did not require pressor support last evening due to improvement in hypotension. (2) GI bleed: - Presented with coffee ground emesis and melena -- FOBT was positive. Has not had any further episodes of melena/coffee ground emesis since admission. - Continue Protonix drip. - NPO except medications/sips of water; IV fluids at 100 cc/hr. - GI consulted, plan for EGD today. - Hold home Plavix/ASA - last dose on Friday10/08/19. (3) Anemia: - Hgb 7.8 - required 2 units pRBCs. H/H is stable post transfusion. - Likely acute blood loss related to GI bleed. - Monitor CBC twice daily in setting of acute bleed. (4) Leukocytosis: - WBC 16.34 on admission with left shift, now improved to 9.03. - U/a negative; BC pending. - CXR negative for pneumonia. - Continue Zosyn for empiric coverage; can d/c on 10/12 if cultures are negative - possibly related to acute inflammation/GI bleed. (5) Peripheral arterial disease: - S/p balloon angioplasty at [facility] [place]. - Hold home Plavix and ASA due to acute bleed. - Follows with cardiology at [facility] -- requested records. (6) Acute renal failure: - Creatinine was 2.17 on admission - no previous labs for comparison but is likely elevated above baseline. - NS at 100 cc/hr x 2 bags. - Monitor renal function daily - improved to 1.72. - Hold nephrotoxic agents. - U/a negative for cast cells -- not likely related to ATN in setting of acute anemia/hypotension. (7) CKD (chronic kidney disease): - No previous labs for staging, likely stage III-IV. (8) Diabetes mellitus, type II: - Holding home Metformin. - A1C 6.5. - SSI coverage. (9) Atrial fibrillation: - Paroxysmal A. fib; continue home Propafenone q8hr. - Hold Metoprolol XL 50 mg daily - monitor for rebound tachycardia. - In NSR on monitor, 60-70's. - Not currently on therapeutic anticoagulation at home. - Requested cardiology records. (10) HTN (hypertension): - Hold home Metoprolol in setting of hypotension. (11) HLD (hyperlipidemia): - Continue Atorvastatin 10 mg daily. (12) Hyperkalemia: - K level 5.3 on admission, now improved to 3.9. - Monitor BMP daily. (13) DVT prophylaxis: - SCDs; hold pharmacologic ppx in setting of acute bleed/planned procedure. Dispo: PCU admit for acute GI bleed. Plan for EGD today. Admission and Anticipated Discharge Date Admission Date: October 11, 2019 Subjective Pt. c/o fatigue and generalized weakness. Has not had any BMs since admission; denies recurrent episodes of coffee ground emesis. Denies chest pain or SOB. Plan for EGD today per GI. Review of Systems Review of Systems: All systems reviewed & are unremarkable except as noted in HPI & below Constitutional: + fatigue, + weakness and + anorexia; no fever and no chills Respiratory: no cough, no dyspnea, no dyspnea on exertion and no wheezing Cardiovascular: no chest pain, no palpitations and no edema Gastrointestinal: + abdominal pain; no nausea, no vomiting, no coffee ground emesis, no constipation, no diarrhea/loose stools, no blood in stools and no melena Genitourinary: no difficulty urinating Musculoskeletal: no back pain and no joint pain Integumentary: no non-healing lesions Physical Exam Physical Exam: General: Resting comfortably HEENT: NC/AT; PERRLA with EOMI; [place] conjunctiva, MMM. No erythema of posterior pharynx Neck: Supple and nontender Cardiac: RRR Lungs: CTA bilaterally Abdomen: Bowel normoactive X 4; Nontender to palpation Extremities: Warm. No edema present Neuro: No focal weakness Skin: Psoriasis plaques. Results & Data ([facility]) Vital Signs (Past 12 Hours) Vital Signs Temp Pulse Resp BP Pulse Ox 10/12/19 11:29 36.4 C L 86 20 150/58 H 98 10/12/19 07:00 36.6 C 82 16 140/57 L 99 10/12/19 03:14 36.6 C 78 17 135/61 99 Laboratory Results 10/12/19 10/12/19 10/12/19 Range/Units 11:37 08:14 08:14 WBC (4.8-10.8) K/uL RBC (4.7-6.1) M/uL Hgb (14.0-18.0) g/dL Hct (42-52) % MCV (80-100) fL MCH (25-34) pg MCHC (32-36) g/dL RDW Std Deviation (36.4-46.3) fL RDW Coeff of [place] (11.5-14.5) % Plt Count (130-400) K/uL MPV (7.4-10.4) fL Immature Gran % (Auto) % Neut % (Auto) % Lymph % (Auto) % [place] % (Auto) % Eos % (Auto) % Baso % (Auto) % Immature Gran # (Auto) (0.00-0.02) K/uL Neut # (Auto) (1.4-6.5) K/uL Lymph # (Auto) (1.2-3.4) K/uL [place] # (Auto) (0.11-0.59) K/uL Eos # (Auto) (0-0.5) K/uL Baso # (Auto) (0-0.2) K/uL Platelet Estimate (Normal) PT INR APTT PTT Ratio Sodium 144 (136-145) mmol/L Potassium 3.9 D (3.5-5.1) mmol/L Chloride 117 H (98-107) mmol/L Carbon Dioxide 21 (21-32) mmol/L Anion Gap 6.0 (3-11) BUN 69 H (7-18) mg/dl Creatinine 1.72 H D (0.6-1.4) mg/dl Est Cr Clr Drug Dosing 42.5 ml/min Est GFR ( Amer) 43.8 Est GFR (Non-Af Amer) 37.8 BUN/Creatinine Ratio 40.1 H (10-20) Glucose 143 H (70-99) mg/dl POC Glucose 167 H (70-99) mg/dl Estimat Average Glucose 140 mg/dl Hemoglobin A1c 6.5 H (4.5-5.6) % Lactate (0.4-2.0) mmol/L Calcium 8.5 (8.5-10.1) mg/dl Magnesium 2.2 (1.8-2.4) mg/dl Total Bilirubin (0.2-1) mg/dl AST (15-37) U/L ALT (12-78) U/L Alkaline Phosphatase (45-117) U/L Troponin I (0-0.045) ng/ml Total Protein (6.4-8.2) gm/dl Albumin (3.4-5.0) gm/dl Globulin (2.5-4.0) gm/dl Albumin/Globulin Ratio (0.9-2) Procalcitonin (0-0.5) ng/ml Specimen Hemolysis Urine Color Urine Appearance (Clear) Urine pH (4.5-7.5) Ur Specific [place] (1.000-1.030) Urine Protein (Negative) Urine Glucose (UA) (Negative) Urine Ketones (Negative) Urine Blood (Negative) Urine Nitrite (Negative) Urine Bilirubin (Negative) Urine Urobilinogen (Negative) Ur Leukocyte Esterase (Negative) Urine Osmolality (500-800) mOsm/kg Ur Random Creatinine mg/dl Ur Random Sodium mmol/L Ur Random Potassium mmol/L Ur Random Chloride mmol/L Ur Random Uric Acid mg/dl POC Stool Occult Blood (Negative) Blood Type Blood Type Recheck Antibody Screen Crossmatch 10/12/19 10/12/19 10/12/19 Range/Units 08:14 07:18 05:12 WBC 9.03 (4.8-10.8) K/uL RBC 2.98 L (4.7-6.1) M/uL Hgb 8.9 L (14.0-18.0) g/dL Hct 26.5 L (42-52) % MCV 88.9 (80-100) fL MCH 29.9 (25-34) pg MCHC 33.6 (32-36) g/dL RDW Std Deviation 47.9 H (36.4-46.3) fL RDW Coeff of [place]el[place] 14.7 H (11.5-14.5) % Plt Count 161 (130-400) K/uL MPV 11.2 H (7.4-10.4) fL Immature Gran % (Auto) % Neut % (Auto) % Lymph % (Auto) % [place] % (Auto) % Eos % (Auto) % Baso % (Auto) % Immature Gran # (Auto) (0.00-0.02) K/uL Neut # (Auto) (1.4-6.5) K/uL Lymph # (Auto) (1.2-3.4) K/uL [place] # (Auto) (0.11-0.59) K/uL Eos # (Auto) (0-0.5) K/uL Baso # (Auto) (0-0.2) K/uL Platelet Estimate (Normal) PT INR APTT PTT Ratio Sodium (136-145) mmol/L Potassium (3.5-5.1) mmol/L Chloride (98-107) mmol/L Carbon Dioxide (21-32) mmol/L Anion Gap (3-11) BUN (7-18) mg/dl Creatinine (0.6-1.4) mg/dl Est Cr Clr Drug Dosing ml/min Est GFR ( Amer) Est GFR (Non-Af Amer) BUN/Creatinine Ratio (10-20) Glucose (70-99) mg/dl POC Glucose 147 H (70-99) mg/dl Estimat Average Glucose mg/dl Hemoglobin A1c (4.5-5.6) % Lactate (0.4-2.0) mmol/L Calcium (8.5-10.1) mg/dl Magnesium (1.8-2.4) mg/dl Total Bilirubin (0.2-1) mg/dl AST (15-37) U/L ALT (12-78) U/L Alkaline Phosphatase (45-117) U/L Troponin I (0-0.045) ng/ml Total Protein (6.4-8.2) gm/dl Albumin (3.4-5.0) gm/dl Globulin (2.5-4.0) gm/dl Albumin/Globulin Ratio (0.9-2) Procalcitonin (0-0.5) ng/ml Specimen Hemolysis Urine Color Yellow Urine Appearance Clear (Clear) Urine pH 5.0 (4.5-7.5) Ur Specific [place] 1.019 (1.000-1.030) Urine Protein Negative (Negative) Urine Glucose (UA) Negative (Negative) Urine Ketones Negative (Negative) Urine Blood Negative (Negative) Urine Nitrite Negative (Negative) Urine Bilirubin Negative (Negative) Urine Urobilinogen Negative (Negative) Ur Leukocyte Esterase Negative (Negative) Urine Osmolality (500-800) mOsm/kg Ur Random Creatinine mg/dl Ur Random Sodium mmol/L Ur Random Potassium mmol/L Ur Random Chloride mmol/L Ur Random Uric Acid mg/dl POC Stool Occult Blood (Negative) Blood Type Blood Type Recheck Antibody Screen Crossmatch 10/12/19 10/11/19 10/11/19 Range/Units 01:20 21:18 21:18 WBC (4.8-10.8) K/uL RBC (4.7-6.1) M/uL Hgb 9.5 L (14.0-18.0) g/dL Hct 28.5 L (42-52) % MCV (80-100) fL MCH (25-34) pg MCHC (32-36) g/dL RDW Std Deviation (36.4-46.3) fL RDW Coeff of [place] (11.5-14.5) % Plt Count (130-400) K/uL MPV (7.4-10.4) fL Immature Gran % (Auto) % Neut % (Auto) % Lymph % (Auto) % [place] % (Auto) % Eos % (Auto) % Baso % (Auto) % Immature Gran # (Auto) (0.00-0.02) K/uL Neut # (Auto) (1.4-6.5) K/uL Lymph # (Auto) (1.2-3.4) K/uL [place] # (Auto) (0.11-0.59) K/uL Eos # (Auto) (0-0.5) K/uL Baso # (Auto) (0-0.2) K/uL Platelet Estimate (Normal) PT INR APTT PTT Ratio Sodium (136-145) mmol/L Potassium (3.5-5.1) mmol/L Chloride (98-107) mmol/L Carbon Dioxide (21-32) mmol/L Anion Gap (3-11) BUN (7-18) mg/dl Creatinine (0.6-1.4) mg/dl Est Cr Clr Drug Dosing ml/min Est GFR ( Amer) Est GFR (Non-Af Amer) BUN/Creatinine Ratio (10-20) Glucose (70-99) mg/dl POC Glucose (70-99) mg/dl Estimat Average Glucose mg/dl Hemoglobin A1c (4.5-5.6) % Lactate 2.0 (0.4-2.0) mmol/L Calcium (8.5-10.1) mg/dl Magnesium (1.8-2.4) mg/dl Total Bilirubin (0.2-1) mg/dl AST (15-37) U/L ALT (12-78) U/L Alkaline Phosphatase (45-117) U/L Troponin I (0-0.045) ng/ml Total Protein (6.4-8.2) gm/dl Albumin (3.4-5.0) gm/dl Globulin (2.5-4.0) gm/dl Albumin/Globulin Ratio (0.9-2) Procalcitonin 0.08 (0-0.5) ng/ml Specimen Hemolysis Urine Color Urine Appearance (Clear) Urine pH (4.5-7.5) Ur Specific [place] (1.000-1.030) Urine Protein (Negative) Urine Glucose (UA) (Negative) Urine Ketones (Negative) Urine Blood (Negative) Urine Nitrite (Negative) Urine Bilirubin (Negative) Urine Urobilinogen (Negative) Ur Leukocyte Esterase (Negative) Urine Osmolality (500-800) mOsm/kg Ur Random Creatinine mg/dl Ur Random Sodium mmol/L Ur Random Potassium mmol/L Ur Random Chloride mmol/L Ur Random Uric Acid mg/dl POC Stool Occult Blood (Negative) Blood Type Blood Type Recheck Antibody Screen Crossmatch 10/11/19 10/11/19 10/11/19 Range/Units 19:42 17:50 17:50 WBC (4.8-10.8) K/uL RBC (4.7-6.1) M/uL Hgb (14.0-18.0) g/dL Hct (42-52) % MCV (80-100) fL MCH (25-34) pg MCHC (32-36) g/dL RDW Std Deviation (36.4-46.3) fL RDW Coeff of [place] (11.5-14.5) % Plt Count (130-400) K/uL MPV (7.4-10.4) fL Immature Gran % (Auto) % Neut % (Auto) % Lymph % (Auto) % [place] % (Auto) % Eos % (Auto) % Baso % (Auto) % Immature Gran # (Auto) (0.00-0.02) K/uL Neut # (Auto) (1.4-6.5) K/uL Lymph # (Auto) (1.2-3.4) K/uL [place] # (Auto) (0.11-0.59) K/uL Eos # (Auto) (0-0.5) K/uL Baso # (Auto) (0-0.2) K/uL Platelet Estimate (Normal) PT INR APTT PTT Ratio Sodium (136-145) mmol/L Potassium (3.5-5.1) mmol/L Chloride (98-107) mmol/L Carbon Dioxide (21-32) mmol/L Anion Gap (3-11) BUN (7-18) mg/dl Creatinine (0.6-1.4) mg/dl Est Cr Clr Drug Dosing ml/min Est GFR ( Amer) Est GFR (Non-Af Amer) BUN/Creatinine Ratio (10-20) Glucose (70-99) mg/dl POC Glucose 160 H (70-99) mg/dl Estimat Average Glucose mg/dl Hemoglobin A1c (4.5-5.6) % Lactate (0.4-2.0) mmol/L Calcium (8.5-10.1) mg/dl Magnesium (1.8-2.4) mg/dl Total Bilirubin (0.2-1) mg/dl AST (15-37) U/L ALT (12-78) U/L Alkaline Phosphatase (45-117) U/L Troponin I (0-0.045) ng/ml Total Protein (6.4-8.2) gm/dl Albumin (3.4-5.0) gm/dl Globulin (2.5-4.0) gm/dl Albumin/Globulin Ratio (0.9-2) Procalcitonin (0-0.5) ng/ml Specimen Hemolysis Urine Color Yellow Urine Appearance Clear (Clear) Urine pH 5.0 (4.5-7.5) Ur Specific [place] 1.018 (1.000-1.030) Urine Protein Negative (Negative) Urine Glucose (UA) Negative (Negative) Urine Ketones Negative (Negative) Urine Blood Negative (Negative) Urine Nitrite Negative (Negative) Urine Bilirubin Negative (Negative) Urine Urobilinogen Negative (Negative) Ur Leukocyte Esterase Negative (Negative) Urine Osmolality (500-800) mOsm/kg Ur Random Creatinine mg/dl Ur Random Sodium mmol/L Ur Random Potassium mmol/L Ur Random Chloride mmol/L Ur Random Uric Acid 21.7 mg/dl POC Stool Occult Blood (Negative) Blood Type Blood Type Recheck Antibody Screen Crossmatch 10/11/19 10/11/19 10/11/19 Range/Units 17:50 17:50 17:50 WBC (4.8-10.8) K/uL RBC (4.7-6.1) M/uL Hgb (14.0-18.0) g/dL Hct (42-52) % MCV (80-100) fL MCH (25-34) pg MCHC (32-36) g/dL RDW Std Deviation (36.4-46.3) fL RDW Coeff of [place] (11.5-14.5) % Plt Count (130-400) K/uL MPV (7.4-10.4) fL Immature Gran % (Auto) % Neut % (Auto) % Lymph % (Auto) % [place] % (Auto) % Eos % (Auto) % Baso % (Auto) % Immature Gran # (Auto) (0.00-0.02) K/uL Neut # (Auto) (1.4-6.5) K/uL Lymph # (Auto) (1.2-3.4) K/uL [place] # (Auto) (0.11-0.59) K/uL Eos # (Auto) (0-0.5) K/uL Baso # (Auto) (0-0.2) K/uL Platelet Estimate (Normal) PT INR APTT PTT Ratio Sodium (136-145) mmol/L Potassium (3.5-5.1) mmol/L Chloride (98-107) mmol/L Carbon Dioxide (21-32) mmol/L Anion Gap (3-11) BUN (7-18) mg/dl Creatinine (0.6-1.4) mg/dl Est Cr Clr Drug Dosing ml/min Est GFR ( Amer) Est GFR (Non-Af Amer) BUN/Creatinine Ratio (10-20) Glucose (70-99) mg/dl POC Glucose (70-99) mg/dl Estimat Average Glucose mg/dl Hemoglobin A1c (4.5-5.6) % Lactate (0.4-2.0) mmol/L Calcium (8.5-10.1) mg/dl Magnesium (1.8-2.4) mg/dl Total Bilirubin (0.2-1) mg/dl AST (15-37) U/L ALT (12-78) U/L Alkaline Phosphatase (45-117) U/L Troponin I (0-0.045) ng/ml Total Protein (6.4-8.2) gm/dl Albumin (3.4-5.0) gm/dl Globulin (2.5-4.0) gm/dl Albumin/Globulin Ratio (0.9-2) Procalcitonin (0-0.5) ng/ml Specimen Hemolysis Urine Color Urine Appearance (Clear) Urine pH (4.5-7.5) Ur Specific [place] (1.000-1.030) Urine Protein (Negative) Urine Glucose (UA) (Negative) Urine Ketones (Negative) Urine Blood (Negative) Urine Nitrite (Negative) Urine Bilirubin (Negative) Urine Urobilinogen (Negative) Ur Leukocyte Esterase (Negative) Urine Osmolality 451 L (500-800) mOsm/kg Ur Random Creatinine mg/dl Ur Random Sodium 22 mmol/L Ur Random Potassium 42.2 mmol/L Ur Random Chloride mmol/L Ur Random Uric Acid mg/dl POC Stool Occult Blood (Negative) Blood Type Blood Type Recheck Antibody Screen Crossmatch 10/11/19 10/11/19 10/11/19 Range/Units 17:50 17:50 16:30 WBC (4.8-10.8) K/uL RBC (4.7-6.1) M/uL Hgb 7.8 L (14.0-18.0) g/dL Hct 23.8 L (42-52) % MCV (80-100) fL MCH (25-34) pg MCHC (32-36) g/dL RDW Std Deviation (36.4-46.3) fL RDW Coeff of [place] (11.5-14.5) % Plt Count (130-400) K/uL MPV (7.4-10.4) fL Immature Gran % (Auto) % Neut % (Auto) % Lymph % (Auto) % [place] % (Auto) % Eos % (Auto) % Baso % (Auto) % Immature Gran # (Auto) (0.00-0.02) K/uL Neut # (Auto) (1.4-6.5) K/uL Lymph # (Auto) (1.2-3.4) K/uL [place] # (Auto) (0.11-0.59) K/uL Eos # (Auto) (0-0.5) K/uL Baso # (Auto) (0-0.2) K/uL Platelet Estimate (Normal) PT INR APTT PTT Ratio Sodium (136-145) mmol/L Potassium (3.5-5.1) mmol/L Chloride (98-107) mmol/L Carbon Dioxide (21-32) mmol/L Anion Gap (3-11) BUN (7-18) mg/dl Creatinine (0.6-1.4) mg/dl Est Cr Clr Drug Dosing ml/min Est GFR ( Amer) Est GFR (Non-Af Amer) BUN/Creatinine Ratio (10-20) Glucose (70-99) mg/dl POC Glucose (70-99) mg/dl Estimat Average Glucose mg/dl Hemoglobin A1c (4.5-5.6) % Lactate (0.4-2.0) mmol/L Calcium (8.5-10.1) mg/dl Magnesium (1.8-2.4) mg/dl Total Bilirubin (0.2-1) mg/dl AST (15-37) U/L ALT (12-78) U/L Alkaline Phosphatase (45-117) U/L Troponin I (0-0.045) ng/ml Total Protein (6.4-8.2) gm/dl Albumin (3.4-5.0) gm/dl Globulin (2.5-4.0) gm/dl Albumin/Globulin Ratio (0.9-2) Procalcitonin (0-0.5) ng/ml Specimen Hemolysis Urine Color Urine Appearance (Clear) Urine pH (4.5-7.5) Ur Specific [place] (1.000-1.030) Urine Protein (Negative) Urine Glucose (UA) (Negative) Urine Ketones (Negative) Urine Blood (Negative) Urine Nitrite (Negative) Urine Bilirubin (Negative) Urine Urobilinogen (Negative) Ur Leukocyte Esterase (Negative) Urine Osmolality (500-800) mOsm/kg Ur Random Creatinine 123.0 mg/dl Ur Random Sodium mmol/L Ur Random Potassium mmol/L Ur Random Chloride < 10 mmol/L Ur Random Uric Acid mg/dl POC Stool Occult Blood (Negative) Blood Type Blood Type Recheck Antibody Screen Crossmatch 10/11/19 10/11/19 10/11/19 Range/Units 16:30 16:30 16:16 WBC (4.8-10.8) K/uL RBC (4.7-6.1) M/uL Hgb (14.0-18.0) g/dL Hct (42-52) % MCV (80-100) fL MCH (25-34) pg MCHC (32-36) g/dL RDW Std Deviation (36.4-46.3) fL RDW Coeff of [place] (11.5-14.5) % Plt Count (130-400) K/uL MPV (7.4-10.4) fL Immature Gran % (Auto) % Neut % (Auto) % Lymph % (Auto) % [place] % (Auto) % Eos % (Auto) % Baso % (Auto) % Immature Gran # (Auto) (0.00-0.02) K/uL Neut # (Auto) (1.4-6.5) K/uL Lymph # (Auto) (1.2-3.4) K/uL [place] # (Auto) (0.11-0.59) K/uL Eos # (Auto) (0-0.5) K/uL Baso # (Auto) (0-0.2) K/uL Platelet Estimate (Normal) PT 10.8 INR 1.1 APTT 23.6 PTT Ratio 0.9 Sodium (136-145) mmol/L Potassium (3.5-5.1) mmol/L Chloride (98-107) mmol/L Carbon Dioxide (21-32) mmol/L Anion Gap (3-11) BUN (7-18) mg/dl Creatinine (0.6-1.4) mg/dl Est Cr Clr Drug Dosing ml/min Est GFR ( Amer) Est GFR (Non-Af Amer) BUN/Creatinine Ratio (10-20) Glucose (70-99) mg/dl POC Glucose 173 H (70-99) mg/dl Estimat Average Glucose mg/dl Hemoglobin A1c (4.5-5.6) % Lactate (0.4-2.0) mmol/L Calcium (8.5-10.1) mg/dl Magnesium (1.8-2.4) mg/dl Total Bilirubin (0.2-1) mg/dl AST (15-37) U/L ALT (12-78) U/L Alkaline Phosphatase (45-117) U/L Troponin I (0-0.045) ng/ml Total Protein (6.4-8.2) gm/dl Albumin (3.4-5.0) gm/dl Globulin (2.5-4.0) gm/dl Albumin/Globulin Ratio (0.9-2) Procalcitonin (0-0.5) ng/ml Specimen Hemolysis Urine Color Urine Appearance (Clear) Urine pH (4.5-7.5) Ur Specific [place] (1.000-1.030) Urine Protein (Negative) Urine Glucose (UA) (Negative) Urine Ketones (Negative) Urine Blood (Negative) Urine Nitrite (Negative) Urine Bilirubin (Negative) Urine Urobilinogen (Negative) Ur Leukocyte Esterase (Negative) Urine Osmolality (500-800) mOsm/kg Ur Random Creatinine mg/dl Ur Random Sodium mmol/L Ur Random Potassium mmol/L Ur Random Chloride mmol/L Ur Random Uric Acid mg/dl POC Stool Occult Blood (Negative) Blood Type Blood Type Recheck A Positive Antibody Screen Crossmatch 10/11/19 10/11/19 10/11/19 Range/Units 14:55 14:36 14:36 WBC (4.8-10.8) K/uL RBC (4.7-6.1) M/uL Hgb (14.0-18.0) g/dL Hct (42-52) % MCV (80-100) fL MCH (25-34) pg MCHC (32-36) g/dL RDW Std Deviation (36.4-46.3) fL RDW Coeff of [place] (11.5-14.5) % Plt Count (130-400) K/uL MPV (7.4-10.4) fL Immature Gran % (Auto) % Neut % (Auto) % Lymph % (Auto) % [place] % (Auto) % Eos % (Auto) % Baso % (Auto) % Immature Gran # (Auto) (0.00-0.02) K/uL Neut # (Auto) (1.4-6.5) K/uL Lymph # (Auto) (1.2-3.4) K/uL [place] # (Auto) (0.11-0.59) K/uL Eos # (Auto) (0-0.5) K/uL Baso # (Auto) (0-0.2) K/uL Platelet Estimate (Normal) PT Cancelled INR Cancelled APTT Cancelled PTT Ratio Cancelled Sodium (136-145) mmol/L Potassium (3.5-5.1) mmol/L Chloride (98-107) mmol/L Carbon Dioxide (21-32) mmol/L Anion Gap (3-11) BUN (7-18) mg/dl Creatinine (0.6-1.4) mg/dl Est Cr Clr Drug Dosing ml/min Est GFR ( Amer) Est GFR (Non-Af Amer) BUN/Creatinine Ratio (10-20) Glucose (70-99) mg/dl POC Glucose (70-99) mg/dl Estimat Average Glucose mg/dl Hemoglobin A1c (4.5-5.6) % Lactate (0.4-2.0) mmol/L Calcium (8.5-10.1) mg/dl Magnesium (1.8-2.4) mg/dl Total Bilirubin (0.2-1) mg/dl AST (15-37) U/L ALT (12-78) U/L Alkaline Phosphatase (45-117) U/L Troponin I (0-0.045) ng/ml Total Protein (6.4-8.2) gm/dl Albumin (3.4-5.0) gm/dl Globulin (2.5-4.0) gm/dl Albumin/Globulin Ratio (0.9-2) Procalcitonin (0-0.5) ng/ml Specimen Hemolysis Urine Color Urine Appearance (Clear) Urine pH (4.5-7.5) Ur Specific [place] (1.000-1.030) Urine Protein (Negative) Urine Glucose (UA) (Negative) Urine Ketones (Negative) Urine Blood (Negative) Urine Nitrite (Negative) Urine Bilirubin (Negative) Urine Urobilinogen (Negative) Ur Leukocyte Esterase (Negative) Urine Osmolality (500-800) mOsm/kg Ur Random Creatinine mg/dl Ur Random Sodium mmol/L Ur Random Potassium mmol/L Ur Random Chloride mmol/L Ur Random Uric Acid mg/dl POC Stool Occult Blood Positive A (Negative) Blood Type A Positive Blood Type Recheck Antibody Screen NEGATIVE Crossmatch See Detail 10/11/19 10/11/19 Range/Units 14:36 14:36 WBC 16.34 H (4.8-10.8) K/uL RBC 3.25 L (4.7-6.1) M/uL Hgb 9.8 L (14.0-18.0) g/dL Hct 29.6 L (42-52) % MCV 91.1 (80-100) fL MCH 30.2 (25-34) pg MCHC 33.1 (32-36) g/dL RDW Std Deviation 46.1 (36.4-46.3) fL RDW Coeff of [place] 13.9 (11.5-14.5) % Plt Count 210 (130-400) K/uL MPV 12.1 H (7.4-10.4) fL Immature Gran % (Auto) 0.7 % Neut % (Auto) 80.5 % Lymph % (Auto) 11.4 % [place] % (Auto) 6.4 % Eos % (Auto) 0.8 % Baso % (Auto) 0.2 % Immature Gran # (Auto) 0.12 H (0.00-0.02) K/uL Neut # (Auto) 13.15 H (1.4-6.5) K/uL Lymph # (Auto) 1.87 (1.2-3.4) K/uL [place] # (Auto) 1.04 H (0.11-0.59) K/uL Eos # (Auto) 0.13 (0-0.5) K/uL Baso # (Auto) 0.03 (0-0.2) K/uL Platelet Estimate Normal (Normal) PT INR APTT PTT Ratio Sodium 141 (136-145) mmol/L Potassium 5.3 H (3.5-5.1) mmol/L Chloride 109 H (98-107) mmol/L Carbon Dioxide 24 (21-32) mmol/L Anion Gap 7.0 (3-11) BUN 97 H (7-18) mg/dl Creatinine 2.17 H (0.6-1.4) mg/dl Est Cr Clr Drug Dosing 32.7 ml/min Est GFR ( Amer) 33.1 Est GFR (Non-Af Amer) 28.5 BUN/Creatinine Ratio 44.6 H (10-20) Glucose 231 H (70-99) mg/dl POC Glucose (70-99) mg/dl Estimat Average Glucose mg/dl Hemoglobin A1c (4.5-5.6) % Lactate (0.4-2.0) mmol/L Calcium 9.2 (8.5-10.1) mg/dl Magnesium (1.8-2.4) mg/dl Total Bilirubin 0.4 (0.2-1) mg/dl AST 11 L (15-37) U/L ALT 14 (12-78) U/L Alkaline Phosphatase 67 (45-117) U/L Troponin I < 0.015 (0-0.045) ng/ml Total Protein 6.8 (6.4-8.2) gm/dl Albumin 3.3 L (3.4-5.0) gm/dl Globulin 3.5 (2.5-4.0) gm/dl Albumin/Globulin Ratio 0.9 (0.9-2) Procalcitonin (0-0.5) ng/ml Specimen Hemolysis Urine Color Urine Appearance (Clear) Urine pH (4.5-7.5) Ur Specific [place] (1.000-1.030) Urine Protein (Negative) Urine Glucose (UA) (Negative) Urine Ketones (Negative) Urine Blood (Negative) Urine Nitrite (Negative) Urine Bilirubin (Negative) Urine Urobilinogen (Negative) Ur Leukocyte Esterase (Negative) Urine Osmolality (500-800) mOsm/kg Ur Random Creatinine mg/dl Ur Random Sodium mmol/L Ur Random Potassium mmol/L Ur Random Chloride mmol/L Ur Random Uric Acid mg/dl POC Stool Occult Blood (Negative) Blood Type Blood Type Recheck Antibody Screen Crossmatch PG Care Time/CCT Total # of Minutes Spent Total Time Spent with Patient: Total time spent is greater than 50% in coordination of care (as documented) at patient's floor/unit and/or counseling patient: Coding Level of Care Code 92918 Subseq Hosp Care Lvl 3 Diagnoses Hypotension I95.9 GI bleed K92.2 Anemia D64.9 Leukocytosis D72.829 Peripheral arterial disease I73.9 Acute renal failure N17.9 CKD (chronic kidney disease) N18.9 Diabetes mellitus, type II E11.9 Atrial fibrillation I48.91 HTN (hypertension) I10 HLD (hyperlipidemia) E78.5 Hyperkalemia E87.5 DVT prophylaxis Z29.9
--- NOTE | 2019-10-12 12:52 | Anesthesiology Consultation ---
Date of Service October 12, 2019 Assessment & Plan (1) Encounter for pre-operative examination: Chart Review Chart Review: Acceptable Risk for Surgery and Patient NOT seen in Pre Admission Testing Consults Requested none ASA ASA3 Proposed Anesthesia Anesthesia Type: MAC Risk / Benefits Reviewed With: PT / POA / Parent / Guardian, Accepts Plan and Informed Consent Obtained History Surgery Operation Date: 10/12/19 17:25 Proposed Procedures p Esophagogastroduodenoscopy Dr Vaughan - Francisca Vaughan Height/Weight Height: 6 ft 2 in Weight: 92.4 kg Allergies Allergy/AdvReac Type Severity Reaction Status Date / Time No Known Allergies Allergy Unverified 10/11/19 16:45 Medications Home Medications Medication Instructions Recorded Confirmed Last Taken aspirin 325 mg PO QAM 10/11/19 10/11/19 Unknown atorvastatin 10 mg PO QPM 10/11/19 10/11/19 Unknown clopidogrel 75 mg PO QAM 10/11/19 10/11/19 Unknown furosemide 20 mg PO QAM 10/11/19 10/11/19 Unknown metformin 500 mg PO BID 10/11/19 10/11/19 Unknown metoprolol succinate 50 mg PO QAM 10/11/19 10/11/19 Unknown propafenone 150 mg PO TID 10/11/19 10/11/19 Unknown Active Medications Generic Name Dose Route Start Last Admin Trade Name Freq PRN Reason Stop Dose Admin Atorvastatin Calcium 10 mg 10/12/19 09:00 10/12/19 08:17 Lipitor PO 11/11/19 08:59 10 mg QAM EDWIN Administration Pantoprazole Sodium 40 mg/ 100 mls @ 20 mls/hr 10/11/19 15:15 10/12/19 11:14 Dextrose IV 11/10/19 15:14 8 mg/hr Q5H EDWIN 20 mls/hr Administration 8 MG/HR Sodium Chloride 1,000 mls @ 100 mls/hr 10/11/19 18:54 10/12/19 09:51 Nss 1000ml IV 10/12/19 14:53 100 mls/hr .Q10H EDWIN Administration Insulin Aspart 0 units 10/11/19 18:54 10/12/19 11:50 Novolog Flexpen SC 11/10/19 18:53 1 units ACHS EDWIN Administration Propafenone HCl 150 mg 10/11/19 22:00 10/12/19 06:04 Rythmol PO 11/10/19 21:59 150 mg Q8 EDWIN Administration NPO Date Last Intake of Fluids: 10/12/19 Time Last Intake of Fluids: 08:00 Date Last Intake of Solids: 10/09/19 Time Last Intake of Solids: 12:00 Past Medical History Medical History Atrial fibrillation Current use of fci anticoagulation Diabetes mellitus, type II History of peripheral arterial disease HLD (hyperlipidemia) HTN (hypertension) Peripheral arterial disease Exercise / Class Metabolic Activity III < 4 Walking/Shop/Light housework Negative for chest pain and SOB. Past Family History Family History Other No significant family history Past Surgical History Surgical History (Updated 10/12/19 @ 13:32 by Cary Rodriguez MD) History of foot surgery Past Anesthesia History No Hx of Anesthesia Complications History of PONV No Hx of PONV Social History Smoking Status: Current every day smoker tobacco type: cigarettes Smoking cigarettes per day: 10 Do You Dip or Chew Tobacco: No Hx Alcohol Use: Yes Alcohol type: beer alcohol intake frequency: holidays/special occasions only Hx Substance Use: No Review of Systems Patient denies active symptoms of GERD. Physical Exam Vital Signs Last Vital Signs Temp 36.4 C L 10/12/19 13:14 Pulse 79 10/12/19 13:14 Resp 18 10/12/19 13:14 BP 164/70 H 10/12/19 13:14 Pulse Ox 99 10/12/19 13:14 Constitutional not obese ENMT Mouth: + dentures and + edentulous; no TMJ abnormality and oral opening not small Thyromental Distance: > or= 3.5 Finger Breadths Mallampati Class: I Neck normal visual inspection; neck extension not limited Respiratory normal respiratory effort Auscultation: lungs clear to auscultation bilaterally Cardiovascular Rate/Rhythm: regular rate and regular rhythm Heart Sounds: no murmur Neurologic moves all extremities Psychiatric Orientation: alert and oriented x 3 Testing Laboratory Results 10/12/19 08:14 10/12/19 08:14 PT 10.8 Seconds (9.0-12.0) 10/11/19 16:30 INR 1.1 (0.9-1.1) 10/11/19 16:30 APTT 23.6 Seconds (21.0-31.0) 10/11/19 16:30 Hemoglobin A1c 6.5 % (4.5-5.6) H 10/12/19 08:14 Urine Color Yellow 10/12/19 05:12 Urine Appearance Clear (Clear) 10/12/19 05:12 Urine pH 5.0 (4.5-7.5) 10/12/19 05:12 Ur Specific [place] 1.019 (1.000-1.030) 10/12/19 05:12 Urine Protein Negative (Negative) 10/12/19 05:12 Urine Glucose (UA) Negative (Negative) 10/12/19 05:12 Urine Ketones Negative (Negative) 10/12/19 05:12 Urine Nitrite Negative (Negative) 10/12/19 05:12 Ur Leukocyte Esterase Negative (Negative) 10/12/19 05:12 Blood Type A Positive 10/11/19 14:36 Antibody Screen NEGATIVE 10/11/19 14:36 10/12/19 10/12/19 11:37 07:18 POC Glucose 167 H 147 H Electrocardiogram Date: 10/11/19 Findings: + NSR @ (86) occasional PVCs
[2019-10-12] MEDS ORDERED: LIDOCAINE HCL 2% 2 ML VIAL/AMP(20MG/ML) INFIL ONE (13:55)
[2019-10-12] MEDS ORDERED: PROPOFOL IV EMULSION 10 MG/ML 20 ML VIAL IV ONE (13:55)
[2019-10-12] MEDS ORDERED: PHENYLEPHRINE 100MCG/ML 5ML SYR ONE (14:06)
[2019-10-12] MEDS ORDERED: ePHEDrine sulfate 50 MG/ML SYR ONE (14:06)
--- NOTE | 2019-10-12 14:07 | GI REPORT ---
Patient Name: Cuco Silva Procedure Date: 10/12/2019 1:40 PM Date of : 1945 Admit Type: Inpatient Age: 74 Gender: Male Attending MD: Francisca Vaughan DO Procedure: Upper GI endoscopy Providers: Francisca Vaughan DO Referring MD: [place] Indications: Coffee-ground emesis, Melena Medicines: Propofol per Anesthesia Complications: No immediate complications. Estimated blood loss: Minimal. Estimated Blood Loss: Estimated blood loss was minimal. Procedure: Pre-Anesthesia Assessment: - Prior to the procedure, a History and Physical was performed, and patient medications, allergies and sensitivities were reviewed. The patient's tolerance of previous anesthesia was reviewed. - The risks and benefits of the procedure and the sedation options and risks were discussed with the patient. All questions were answered and informed consent was obtained. - Patient identification and proposed procedure were verified prior to the procedure by the physician and the nurse. The procedure was verified in the pre-procedure area in the procedure room. - Mental Status Examination: alert and oriented. Airway Examination: normal oropharyngeal airway and neck mobility. Respiratory Examination: clear to auscultation. CV Examination: normal. Abdominal Examination: bowel sounds present, abdomen soft and non-tender, no masses or organomegaly noted. - ASA Grade Assessment: III - A patient with severe systemic disease. After obtaining informed consent, the endoscope was passed under direct vision. Throughout the procedure, the patient's blood pressure, pulse, and oxygen saturations were monitored continuously. The Endoscope was introduced through the mouth, and advanced to the second part of duodenum. The upper GI endoscopy was accomplished without difficulty. The patient tolerated the procedure well. Findings: Savary-Saul Grade II (multiple lesions and folds, noncircumferential, with or without confluence) esophagitis with no bleeding was found at the gastroesophageal junction. Multiple, non-bleeding erosions were found in the entire examined stomach. There were no stigmata of recent bleeding. Biopsies were taken with a cold forceps for Helicobacter pylori testing. Verification of patient identification for the specimen was done by the physician and nurse using the patient's name and date. Estimated blood loss was minimal. The examined duodenum was normal. Impression: - Savary-Saul Grade II erosive esophagitis. - Non-bleeding erosive gastropathy. Biopsied. - Normal examined duodenum. Recommendation: - Await pathology results. - Use a proton pump inhibitor PO BID. - Advance diet as tolerated. - Return patient to [facility]. Francisca Vaughan D.O. Francisca Vaughan, 10/12/2019 2:07:26 PM This report has been signed electronically. Note Initiated On: 10/12/2019 1:40 PM Number of Addenda: 0 I attest to the content of the Intraoperative Record and orders documented therein, exceptions below {[id number]}
--- NOTE | 2019-10-12 16:14 | Anesthesiology Progress Note ---
Date of Service October 12, 2019 Anesthesia Post Procedure Vital Signs Vital Signs: Temp Pulse Pulse Pulse Resp BP BP 10/12/19 15:48 79 10/12/19 15:02 36.4 C L 74 27 H 170/79 H 10/12/19 14:49 36.7 C 78 20 165/57 H 10/12/19 14:32 77 18 147/59 H 10/12/19 14:16 77 16 117/54 L 10/12/19 14:01 70 16 115/50 L 10/12/19 13:14 36.4 C L 79 18 164/70 H 10/12/19 11:29 36.4 C L 86 20 150/58 H 10/12/19 07:00 36.6 C 82 16 140/57 L 10/12/19 03:14 36.6 C 78 17 135/61 10/11/19 23:36 36.8 C 82 16 125/50 L 10/11/19 22:35 36.5 C 83 18 105/62 10/11/19 22:05 36.8 C 84 20 96/52 L 10/11/19 21:50 36.7 C 83 18 126/45 L 10/11/19 21:34 37.0 C 85 20 104/53 L 10/11/19 20:36 85 124/56 L 10/11/19 19:36 36.5 C 83 20 116/35 L 10/11/19 18:45 36.6 C 83 20 92/68 L 10/11/19 18:30 36.8 C 87 18 121/48 L 10/11/19 18:00 36.5 C 82 18 103/47 L 10/11/19 17:45 36.8 C 87 18 110/48 L 10/11/19 17:30 36.7 C 82 16 126/55 L 10/11/19 16:22 83 97/34 L Pulse Ox 10/12/19 15:48 10/12/19 15:02 99 10/12/19 14:49 96 10/12/19 14:32 100 10/12/19 14:16 99 10/12/19 14:01 98 10/12/19 13:14 99 10/12/19 11:29 98 10/12/19 07:00 99 10/12/19 03:14 99 10/11/19 23:36 100 10/11/19 22:35 100 10/11/19 22:05 100 10/11/19 21:50 97 10/11/19 21:34 98 10/11/19 20:36 10/11/19 19:36 99 10/11/19 18:45 100 10/11/19 18:30 98 10/11/19 18:00 99 10/11/19 17:45 97 10/11/19 17:30 97 10/11/19 16:22 96 Transfer of Care Handoff Completed per policy Notes Mental Status: alert / awake / arousable and participated in evaluation Nausea / Vomiting: adequately controlled Pain: adequately controlled Airway Patency, RR, SpO2: stable & adequate BP & HR: stable & adequate Hydration State: stable & adequate Anesthetic Complications: no major complications apparent and Pt Satisfied with anesthetic care
[2019-10-12 16:44] LABS: Hematocrit (blood only) 27.2 % (42-52); Mean Corpuscular Hemoglobin 29.8 pg (25-34); Mean Corpuscular Hgb Conc 33.1 g/dL (32-36); Mean Corpuscular Volume 90.1 fL (80-100); Platelet Count 156 K/uL (130-400); RDW Coefficient of Variation 14.9 % (11.5-14.5); RDW Standard Deviation 48.9 fL (36.4-46.3); Red Blood Count 3.02 M/uL (4.7-6.1); White Blood Count 7.21 K/uL (4.8-10.8)
[2019-10-12] MEDS: PANTOprazole 40 MG TAB PO SCH (21:07)
[2019-10-13] MEDS: PIPERACILLIN/TAZOBACTAM 3.375 GM in DEXTROSE 5% 100 ML IV SCH ×3 (02:39→18:07)
[2019-10-13] MEDS: PROPAFENONE HCL 150 MG TABLET PO SCH ×3 (06:07→21:32)
[2019-10-13 06:13] LABS: Hematocrit (blood only) 25.8 % (42-52); Hemoglobin 8.7 g/dL (14.0-18.0); Mean Corpuscular Hemoglobin 29.9 pg (25-34); Mean Corpuscular Hgb Conc 33.7 g/dL (32-36); Mean Corpuscular Volume 88.7 fL (80-100); Mean Platelet Volume 10.9 fL (7.4-10.4); Platelet Count 153 K/uL (130-400); RDW Coefficient of Variation 14.4 % (11.5-14.5); RDW Standard Deviation 46.7 fL (36.4-46.3); Red Blood Count 2.91 M/uL (4.7-6.1); White Blood Count 6.48 K/uL (4.8-10.8)
[2019-10-13 06:40] LABS: BUN Creatinine Ratio 24.9 (10-20); Calcium 8.2 mg/dl (8.5-10.1); Creatinine Clr Calc Pharmacy 51.5 ml/min; Est GFR (African American) 55.2; Est GFR (Non-African American) 47.6; Potassium 3.7 mmol/L (3.5-5.1)
[2019-10-13] MEDS: INSULIN ASPART 100 UNITS/ML 3 ML PEN SC SCH ×4 (08:21→21:27)
[2019-10-13] MEDS: ATORVASTATIN 10 MG TAB PO SCH (08:23)
[2019-10-13] MEDS: PANTOprazole 40 MG TAB PO SCH ×2 (08:23→21:32)
--- NOTE | 2019-10-13 12:44 | Gastroenterology Progress Note ---
Date of Service October 13, 2019 Assessment & Plan (1) Acute gastrointestinal bleedin. Regular consistency diet. 2. BID PPI x 2 months. 3. Recheck EGD in 2 months. Our office will contact Mr. Silva to arrange. 4. GI will sign off. Please notify us if new/worsening GI issues. Present on Admission?: Yes Admission and Anticipated Discharge Date Admission Date: October 11, 2019 Subjective Mr. Cuco Silva is a 74 yr old male who presented for Melena on 10/11 and underwent EGD yesterday with findings of Grade II erosive esophagitis and gastric erosions. He has not passed a BM since arrival. He feels well. Hemo dynamically stable. Hb is stable: 9.8 on arrival ->8.9 + 1 unit RBCs -> 8.7 today. Review of Systems Review of Systems: ROS: Gen: Mild weakness; no fevers or weight loss Eyes: No eye redness, or pain, no recent vision changes Resp: No SOB, no cough Cardio: Has hx A-fib but denies any recent palpitations/irregular beats, no chest pain GI: See HPI : Denies pain on urination Skin: No jaundice, itching or new rashes Physical Exam Constitutional: WD/WN, vitals as above Eyes: PERRL, conjunctivae normal, anicteric sclerae ENMT: external ear and nose normal, oropharynx normal Neck: trachea midline, no thyromegaly Respiratory: normal respiratory effort, lungs clear to auscultation Gastrointestinal (Abdomen): normal bowel sounds, soft, nontender, no hepatosplenomegaly Musculoskeletal: no cyanosis or clubbing, extremities motor strength 5/5 Neurologic: PERRL, EOMI, accommodation nl, no face palsy, no dysarthria Psychiatric: A+Ox3, euthymic affect Lymphatic: no cervical or axillary lymphadenopathy Results & Data ([facility]) Vital Signs (Past 12 Hours) Vital Signs Temp Pulse Pulse Resp BP BP Pulse Ox 10/13/19 11:30 36.5 C 71 16 148/67 H 96 10/13/19 08:00 72 10/13/19 07:26 36.6 C 68 16 134/49 L 95 10/13/19 03:10 36.5 C 75 16 143/56 H 97 Laboratory Results WBC 6, Hb 8.7, Hct 25.8, platetls 153, Na 144, K 3.7, BUN 35, Cr 1.42. Diagnostic Findings EGD 10/12/[address] Vaughan: - Alejandro-Kg Grade II erosive esophagitis. - Non-bleeding erosive gastropathy. Biopsied. - Normal examined duodenum. Recommendation: - Await pathology results. - Use a proton pump inhibitor PO BID. - Advance diet as tolerated. - Return patient to hospital [facility].
[2019-10-13 13:20] LABS: Hematocrit (blood only) 29.2 % (42-52); Hemoglobin 9.7 g/dL (14.0-18.0)
[2019-10-13 17:03] LABS: Hematocrit (blood only) 26.7 % (42-52); Hemoglobin 8.8 g/dL (14.0-18.0); Mean Corpuscular Hemoglobin 29.3 pg (25-34); Mean Platelet Volume 10.9 fL (7.4-10.4); Platelet Count 162 K/uL (130-400); RDW Coefficient of Variation 14.4 % (11.5-14.5); RDW Standard Deviation 47.1 fL (36.4-46.3); White Blood Count 7.64 K/uL (4.8-10.8)
--- NOTE | 2019-10-13 19:05 | Hospitalist Progress Note ---
Date of Service October 13, 2019 Assessment & Plan (1) GI bleed: - Presented with coffee ground emesis and melena -- FOBT was positive. Has not had any further episodes of melena/coffee ground emesis since admission. - EGD on 10/11 with erosive esophagitis and gastric erosions - Continue Protonix 40 mg BID x 2 months; plan on repeat EGD x 2 months - Holding ASA/Plavix at current time - consideration for just continue Plavix at least initially on D/C if needed could consider ASA 81 mg daily instead of 325 mg dosing - Hgb stable at 8.8 currently (2) Hypotension: - In setting of acute GI bleed; hypotension now improved. - Hold home Metoprolol & Lasix -- no documented TTE in our system but on Lasix 20 mg PO daily at home, ?CHF. - ICU consulted initially, did not require pressor support due to improvement in hypotension. (3) Anemia: - Hgb 7.8 - required 2 units pRBCs. H/H is stable post transfusion and will monitor - Likely acute blood loss related to GI bleed; uncertain of baseline (4) Leukocytosis: - WBC 16.34 on admission with left shift, now resolved - No source of infection; was treated with Zosyn empirically but will hold given no infectious source found -- Possibly leukocytosis just reactive given GI Bleed (5) Peripheral arterial disease: - S/P balloon angioplasty at [facility] [place] - reports this was "years ago"; GF states he currently does not routinely follow with them - Hold home Plavix and ASA due to acute bleed - plan as discussed above - Follows with cardiology at [facility] -- should have F/U as outpatient (6) Acute renal failure: - Creatinine was 2.17 on admission - no previous labs for comparison but is likely elevated above baseline. - Initially given IVF and Cr at 1.42 (7) CKD (chronic kidney disease): - No previous labs for staging, likely stage III-IV (8) Diabetes mellitus, type II: - Holding home Metformin. - A1C 6.5. - SSI coverage. (9) Atrial fibrillation: - Paroxysmal A. fib; continue home Propafenone q8hr. - Hold Metoprolol XL 50 mg daily - monitor for rebound tachycardia. - In NSR on monitor, 60-70's. - Not currently on therapeutic anticoagulation at home. - Requested cardiology records (10) HTN (hypertension): - Hold home Metoprolol in setting of hypotension (11) HLD (hyperlipidemia): - Continue Atorvastatin 10 mg daily (12) DVT prophylaxis: - SCDs; hold pharmacologic ppx in setting of acute bleed Dispo: Downgrade to Med Surg; possible D/C home tomorrow pending AM labs Admission and Anticipated Discharge Date Admission Date: October 11, 2019 Anticipated date of discharge: 10/14/19 Subjective Reports feeling well today but tired. No BM or signs of bleeding. Hgb staying stable. Vitals stable. Reports some irritation of b/l eyes but no drainage and improves with artificial tears. He has been sinus on monitor and is stable for transfer to medical floor. He verbalizes no new complaints Review of Systems Constitutional: + fatigue; no fever and no chills Eyes: + itchy eyes Respiratory: no cough and no dyspnea Cardiovascular: no chest pain, no palpitations and no lightheadedness Gastrointestinal: no abdominal pain, no nausea, no vomiting, no constipation and no diarrhea/loose stools Genitourinary: no dysuria Integumentary: no rash Physical Exam Constitutional: WD/WN, vitals as above no acute distress Eyes: + anicteric sclerae mild redness to eyes which patient reports rubbing his eyes; no conjunctival changes and no purulent drainage ENMT: Ears: no hearing impairment Neck: trachea midline Respiratory: normal respiratory effort, lungs clear to auscultation Cardiovascular: RRR, no murmur, no edema Gastrointestinal (Abdomen): Inspection/Auscultation: normal bowel sounds Percussion/Palpation: abdomen soft; abdomen nontender Musculoskeletal: no cyanosis or clubbing, extremities motor strength 5/5 Head/Neck/Chest: normocephalic and head atraumatic Skin: no rashes, warm and dry Neurologic: moves all extremities Psychiatric: A+Ox3, euthymic affect Results & Data ([facility]) Vital Signs (Past 12 Hours) Vital Signs Temp Pulse Pulse Resp BP BP Pulse Ox 10/13/19 15:18 36.6 C 69 16 126/64 99 10/13/19 11:30 36.5 C 71 16 148/67 H 96 10/13/19 08:00 72 10/13/19 07:26 36.6 C 68 16 134/49 L 95 PG Care Time/CCT Total # of Minutes Spent Total Time Spent with Patient: Total time spent is greater than 50% in coordination of care (as documented) at patient's floor/unit and/or counseling patient: Coding Level of Care Code 28089 Subseq Hosp Care Lvl 3 Diagnoses GI bleed K92.2 Hypotension I95.9 Anemia D64.9 Leukocytosis D72.829 Peripheral arterial disease I73.9 Acute renal failure N17.9 CKD (chronic kidney disease) N18.9 Diabetes mellitus, type II E11.9 Atrial fibrillation I48.91 HTN (hypertension) I10 HLD (hyperlipidemia) E78.5 DVT prophylaxis Z29.9
[2019-10-14] MEDS: PROPAFENONE HCL 150 MG TABLET PO SCH ×2 (05:44→14:47)
[2019-10-14 08:11] LABS: Hematocrit (blood only) 26.5 % (42-52); Hemoglobin 8.7 g/dL (14.0-18.0); Mean Corpuscular Hemoglobin 29.9 pg (25-34); Mean Corpuscular Hgb Conc 32.8 g/dL (32-36); Mean Corpuscular Volume 91.1 fL (80-100); Mean Platelet Volume 10.9 fL (7.4-10.4); Platelet Count 171 K/uL (130-400); RDW Coefficient of Variation 14.2 % (11.5-14.5); RDW Standard Deviation 47.4 fL (36.4-46.3); Red Blood Count 2.91 M/uL (4.7-6.1); White Blood Count 6.69 K/uL (4.8-10.8)
[2019-10-14 08:13] LABS: BUN Creatinine Ratio 14.6 (10-20); Calcium 8.2 mg/dl (8.5-10.1); Creatinine Clr Calc Pharmacy 47.8 ml/min; Est GFR (African American) 50.4; Est GFR (Non-African American) 43.5; Potassium 3.8 mmol/L (3.5-5.1)
[2019-10-14] MEDS: ATORVASTATIN 10 MG TAB PO SCH (08:56)
[2019-10-14] MEDS: PANTOprazole 40 MG TAB PO SCH (08:56)
[2019-10-14] MEDS: INSULIN ASPART 100 UNITS/ML 3 ML PEN SC SCH ×2 (08:58→12:51)
--- NOTE | 2019-10-14 15:48 | Discharge Summary ---
Date of Service October 14, 2019 Admission HPI Per Admitting Provider Mr. 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 Pt. developed vomiting that had a coffee ground appearance yesterday afternoon after 5 pm. He had multiple episodes of vomiting throughout the course of the evening. Had multiple loose BMs overnight, appearance similar to melena -- his described stool as "black as coal". He has generalized fatigue, weakness. Denies chest pain, SOB, URI symptoms, LE edema, abd pain, dysuria or hematuria. ER course: Hgb decreased to 7.8 -- will receive 2 units pRBCs. Is hypotensive -- received 1L NS followed by infusion of 2nd liter NS with minimal improvement. Will consult votator machine operator as patient was agreeable to pressor support if indica joe. Acute renal failure noted on labs; baseline is unclear, no previous labs for comparison. Mild hypokalemia also noted on labs. Will admit to PCU tele; may require upgrade to ICU overnight if no improvement in hypotension. Principal Diagnosis GI Bleed - Gastric Erosions; Esophagitis Discharge Exam Constitutional WD/WN, vitals as above no acute distress Eyes + anicteric sclerae ENMT Ears: no hearing impairment Neck trachea midline Respiratory normal respiratory effort, lungs clear to auscultation Cardiovascular RRR, no murmur, no edema Gastrointestinal (Abdomen) Inspection/Auscultation: normal bowel sounds Percussion/Palpation: abdomen soft; abdomen nontender Musculoskeletal no cyanosis or clubbing, extremities motor strength 5/5 Head/Neck/Chest: normocephalic and head atraumatic Skin no rashes, warm and dry Neurologic moves all extremities Psychiatric A+Ox3, euthymic affect Discharge Data Allergies Allergy/AdvReac Type Severity Reaction Status Date / Time No Known Allergies Allergy Unverified 10/11/19 16:45 Consultations 10/11/19 16:06 ED Decision to Admit Stat 10/11/19 17:12 Consult On Line Csr Routine 10/11/19 17:26 Consult Health Information Management Routine 10/11/19 17:30 Consult Gastroenterology Routine 10/11/19 18:54 Consult Case Management - Discharge Planning Routine Procedures Performed Operation Date: 10/12/19 17:25 Actual Procedures p EGD Biopsy Cytology - Francisca Vaughan Ordered Studies 10/11/19 17:10 US point of care ultrasound Urgent Hospital Course (1) GI bleed: - Presented with coffee ground emesis and melena -- FOBT was positive. Has not had any further episodes of melena/coffee ground emesis since admission. - EGD on 10/11 with erosive esophagitis and gastric erosions - Continue Protonix 40 mg BID x 2 months; plan on repeat EGD x 2 months with [facility] - Discussed current plan is to hold ASA 325 mg daily and continue Plavix 75 mg daily after an additional 4 day hold -- Rx given for repeat CBC in 1 week with results to PCP -- Recommend F/U with his cardiology/vascular doctor to discuss anti-platelet therapy long-term - maybe restart ASA at 81 mg daily? - Hgb stable at 8.7 currently - EGD bx - negative for H. pylori and malignancy (2) Hypotension: - In setting of acute GI bleed; hypotension now resolved - lowest systolic only in 90s - now ranging from 130-150 systolic - Continue Metoprolol & Lasix -- no documented TTE in our system but on Lasix 20 mg PO daily at home, ?CHF. (3) Anemia: - Hgb 7.8 - required 2 units pRBCs. H/H is stable post transfusion and will monitor as outpatient - Likely acute blood loss related to GI bleed; uncertain of baseline given limited labs - Could consider iron supplementation however given gastritis may be too irritative at current time (4) Leukocytosis: - WBC 16.34 on admission with left shift, now resolved - No source of infection; was treated with Zosyn empirically but will hold given no infectious source found -- Possibly leukocytosis just reactive given GI Bleed (5) Peripheral arterial disease: - S/P balloon angioplasty at [facility] [place] - reports this was "years ago"; GF states he currently does not routinely follow with them - Antiplatelet plan as discussed above - Follows with cardiology at [facility] -- should have F/U as outpatient (6) Acute renal failure: - Creatinine was 2.17 on admission - no previous labs for comparison but is likely elevated above baseline. - Initially given IVF and Cr at 1.5 and holding around 1.4-15 - possibly some chronic kidney disease (7) CKD (chronic kidney disease): - No previous labs for staging, likely stage III-IV (8) Diabetes mellitus, type II: - Holding home Metformin. - A1C 6.5. - SSI coverage. (9) Atrial fibrillation: - Paroxysmal A. fib; continue home Propafenone q8hr. - Metoprolol XL 50 mg daily - In NSR on monitor, 60-70's. - Not currently on therapeutic anticoagulation at home. - Requested cardiology records (10) HLD (hyperlipidemia): - Continue Atorvastatin 10 mg daily (11) DVT prophylaxis: - SCDs; held pharmacologic ppx in setting of acute bleed Dispo: Outpatient labs to assess stability of Hgb; discussed signs/symptoms of why to return to the hospital; PCP F/U; Cardiology/Vascular F/U -- Dionte PILLAI will call patient for F/U - planning on repeat EGD x 2 months -- Discussed with Michelle - patients significant other per his request Total Time Total Time Spent Total Time Spent (In Minutes): Greater than 30 minutes Discharge Plan Discharge Items Patient Disposition: Home - Self-Care Reason For Visit: GI BLEED Discharge Diagnosis: GI Bleed Activity: Resume your previous activity Non-emergency contact: Primary Care Provider Call non-emergency contact if: you have any medication questions, your symptoms worsen and you have a fever Follow-up/Referrals: Keisha Aguayo MD [Outside Practitioners] - 10/20/19 10:30 am Diet: Carb Consistent or DM2 Ambulatory Orders: Complete Blood Count no Diff (Routine) Timeframe: 1 Week Location: Determined by Patient Ordered By: Ya Altamirano Attending Provider Instructions: GI Bleed: - You had an EGD (a scope to look at the stomach) - this shows esophagitis and e rosions in the stomach. This is possibly from using aspirin/plavix. However it is important to have these medications for blood vessel health and heart health. - Thankfully your blood counts are now 8.7 which is better since admission. It will take a few weeks to continue to increase but are staying stable. Of course if you have similar issues like what brought you in, it is important to be seen by a doctor immediately - To help prevent further issues. You need to take Protonix 40 mg twice a day for the next 2 months. The GI doctors ([facility]) would like to see you back to have another scope and to see how you are doing. They will call you for an appointment - These are the current recommendations - Stop Aspirin at this time. Do not take Ibuprofen, Naprosyn, Advil, Motri n...these are similar to aspirin and can worsen stomach issues. Can use Tylenol for mild pains - Hold Plavix for 4 more days. You may resume this after that but watch for any dark black stools or any more vomiting. - Will give you a prescription to have your blood levels checked again in a couple days to make sure the levels are still doing well. The results will go to your family doctor - No food restrictions but would avoid foods that normally irritate you. Some more acidic foods (tomato sauce, orange juice, etc.) may be best to avoid for a week or so to not irritate the stomach - It may be best to follow-up with the doctors for your legs to discuss aspirin and plavix. If you need to be on both it may be best to reduce the aspirin to 81 mg but first talk with your family doctor and the heart doctors/leg doctors - The biopsy from your scope looked good too. The sample they took did not so the bacteria h. pylori which can cause ulcers, etc. It did not see abnormal cells or cancer cells Pending Studies at Discharge: No Stand-Alone Forms: Anesthesia/Sedation, Adult, My [facility], Smoking Cessation Medications and DC Order Prescriptions: New pantoprazole 40 mg Tablet,Delayed Release (Dr/Ec) 40 mg PO BID 30 Days Qty: 60 RF: 1 Continued furosemide 20 mg tablet 20 mg PO QAM RF: 0 metformin 500 mg tablet 500 mg PO BID RF: 0 clopidogrel 75 mg tablet 75 mg PO QAM RF: 0 metoprolol succinate 50 mg tablet extended release 24 hr 50 mg PO QAM RF: 0 propafenone 150 mg tablet 150 mg PO TID RF: 0 atorvastatin 10 mg tablet 10 mg PO QPM RF: 0 Discontinued aspirin 325 mg Tablet 325 mg PO QAM RF: 0 Discharge Orders: Discharge Order (Routine); Ordered 10/14/19 Ordered By: Ya Greer Admission Data Admit Date/Time: 10/11/19 17:16 Attending Provider: [place] Admit Provider: Krishna Cerna Primary Care Provider: PCP,NO Other Providers: Krishna Cerna ; Leeanna Gonzalez ; Nikolas Preston Other Interventions: Discharge Summary Assessment (RN) Last Done: 10/14/19 14:53 DC Date/Time DO NOT enter until pt leaves facility: 10/14/19 16:51 Supervising Physician Co-Signing Physician Notes Attending note: patient seen and examined with Ya Greer PA-C. I agree with her discharge summary. I personally reviewed the labs and imaging findings. patient doing well, tolerating diet, no signs of further bleeding Hb is stable ever since initial transfusion BP and HR stable discussed using Protonix, he will follow up with PCP - Acute blood loss anemia, GI bleeding due to esophagitis Hb has been stable ever since initial transfusion no further signs of bleeding had EGD that showed erosive esophagitis, some mild gastritis, H pylori negative will treat with Protonix tolerating diet, d/c to home with PCP follow up Coding Level of Care Code D/C Day Management >30 mins Diagnoses GI bleed K92.2 Hypotension I95.9 Anemia D64.9 Leukocytosis D72.829 Peripheral arterial disease I73.9 Acute renal failure N17.9 CKD (chronic kidney disease) N18.9 Diabetes mellitus, type II E11.9 Atrial fibrillation I48.91 HLD (hyperlipidemia) E78.5 DVT prophylaxis Z29.9
== END 2019-10-14 16:51 | disposition home or self-care (01) | DRG 381 ==
LOC: ED 13:43 → SUATTDRO 16:07 → 2E 16:07 → 3N 10-13 09:49